=== PATIENT | female | born 1990 | race Caucasian/White ===

== ENCOUNTER 2017-12-29 08:15 | Emergency (ER) | payer OTHER ==
--- OUTSIDE RECORDS SUMMARY | 2017-12-29 08:17 | XMS REPORT | Clinical Summary ---
:1990 Author Organization [facility] Address [address] [place] [address] Phone Care Team Providers Name Role Phone Unavailable Primary Care Provider Unavailable Allergies No Known Allergies Current Medications No known medications Active Problems Not on file Social History Tobacco Use Types Packs/Day Years Used Date Current Every Day Smoker 0.5 Alcohol Use Drinks/Week oz/Week Comments No Sex Assigned at Date Recorded Not on file Last Filed Vital Signs Not on file Plan of Treatment Health Maintenance Due Date Last Done Comments INFLUENZA VACCINE 06/12/2018 Results Not on fileafter 12/28/2016
--- NOTE | 2017-12-29 08:52 | EDPHYS ---
Physician Documentation [facility] Name: Martita Dodge Age: 27 yrs Sex: Female : 1990 Arrival Date: 12/29/2017 Time: 08:18 Bed 13 Private MD: None, None ED Physician Christopher Cochran HPI: 12/29 08:49 This 27 yrs old Female presents to ER via Ambulatory with complaints of Sore sharona Throat. 08:49 The patient presents with sore throat. The patient describes throat pain as burning. 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 - Social history:: Smoking status: Patient uses tobacco products, 4-5 cigarettes/ day. ROS: 08:49 Constitutional: Negative for fever, chills, and weight loss, Eyes: Negative for injury, sharona pain, redness, and discharge, ENT: Negative for injury, pain, and discharge, Neck: Negative for injury, pain, and swelling, Cardiovascular: Negative for chest pain, palpitations, and edema, Abdomen/GI: Negative for abdominal pain, nausea, vomiting, diarrhea, and constipation, Back: Negative for injury and pain, : Negative for injury, bleeding, discharge, and swelling, MS/Extremity: Negative for injury and deformity, Skin: Negative for injury, rash, and discoloration, Neuro: Negative for headache, weakness, numbness, tingling, and seizure, Psych: Negative for depression, anxiety, suicide ideation, homicidal ideation, and hallucinations, Allergy/Immunology: Negative for hives, rash, and allergies, Endocrine: Negative for neck swelling, polydipsia, polyuria, polyphagia, and marked weight changes, Hematologic/Lymphatic: Negative for swollen nodes, abnormal bleeding, and unusual bruising. 08:49 Respiratory: Positive for cough, shortness of breath, wheezing, expiratory. 08:49 MS/extremity: Negative for acute changes. Exam: 08:49 Constitutional: This is a well developed, well nourished patient who is awake, alert, sharona and in no acute distress. Head/Face: Normocephalic, atraumatic. Eyes: Pupils equal round and reactive to light, extra-ocular motions intact. Lids and lashes normal. Conjunctiva and sclera are non-icteric and not injected. Cornea within normal limits. Periorbital areas with no swelling, redness, or edema. ENT: Nares patent. No nasal discharge, no septal abnormalities noted. Tympanic membranes are normal and external auditory canals are clear. Oropharynx with no redness, swelling, or masses, exudates, or evidence of obstruction, uvula midline. Mucous membranes moist. Neck: Trachea midline, no thyromegaly or masses palpated, and no cervical lymphadenopathy. Supple, full range of motion without nuchal rigidity, or vertebral point tenderness. No Meningismus. Chest/axilla: Normal chest wall appearance and motion. Nontender with no deformity. No lesions are appreciated. Cardiovascular: Regular rate and rhythm with a normal S1 and S2. No gallops, murmurs, or rubs. Normal PMI, no JVD. No pulse deficits. Abdomen/GI: Soft, non-tender, with normal bowel sounds. No distension or tympany. No guarding or rebound. No evidence of tenderness throughout. Back: No spinal tenderness. No costovertebral tenderness. Full range of motion. Skin: Warm, dry with normal turgor. Normal color with no rashes, no lesions, and no evidence of cellulitis. MS/ Extremity: Pulses equal, no cyanosis. Neurovascular intact. Full, normal range of motion. Neuro: Awake and alert, GCS 15, oriented to person, place, time, and situation. Cranial nerves II-XII grossly intact. Motor strength 5/5 in all extremities. Sensory grossly intact. Cerebellar exam normal. Normal gait. Psych: Awake, alert, with orientation to person, place and time. Behavior, mood, and affect are within normal limits. 08:49 Respiratory: mild respiratory distress is noted, Respirations: no acute changes, labored breathing, Breath sounds: bronchial sounds, rhonchi, wheezing: expiratory Vital Signs: 08:30 BP 109 / 70; Pulse 99; Resp 16; Temp 98.0(TE); Pulse Ox 97% on R/A; Weight 92.08 kg; ss Height 5 ft. 4 in. (162.56 cm); Pain 4/10; 09:15 BP 110 / 71; Pulse 90; Resp 18 S; Pulse Ox 97% on R/A; jl7 08:30 Body Mass Index 34.84 (92.08 kg, 162.56 cm) MDM: 08:29 Patient medically screened. [facility] 08:51 Data reviewed: vital signs, nurses notes. [facility] 12/29 08:49 Order name: FHT's; Complete Time: 09:07 [facility] Administered Medications: 09:07 Drug: Augmentin 875 mg Route: PO; jl7 09:20 Follow up: Response: No adverse reaction [facility] 09:08 Drug: Xopenex 1.25 mg Route: Inhalation; jl7 09:20 Follow up: Response: No adverse reaction 7 09:08 Drug: AtroVENT Aerosol 0.5 mg Route: Inhalation; jl7 09:20 Follow up: Response: No adverse reaction [facility] 09:08 Drug: predniSONE 20 mg Route: PO; jl7 09:20 Follow up: Response: No adverse reaction [facility] Disposition: 12/29/17 08:51 Discharged to Home. Impression: Bronchitis, not specified as acute or chronic, related conditions, unspecified, third trimester, Tobacco use, Tobacco abuse counseling. - Condition is Stable. - Discharge Instructions: Acute Bronchitis, Upper Respiratory Infection, Adult, Third Trimester of , [id number]. - Prescriptions for Cheratussin AC 10- 100 mg/5 mL Oral liquid - take 1 milliliter by ORAL route every 4 hours; 90 milliliter. Augmentin 875- 125 mg Oral Tablet - take 1 tablet by ORAL route every 12 hours for 10 days; 20 tablet. Prednisone 20 mg Oral Tablet - take 1 tablet by ORAL route once daily for 4 days; 4 tablet. Albuterol Sulfate 90 mcg/actuation - inhale 1-2 puff by INHALATION route every 4-6 hours; 1 Inhaler. - Medication Reconciliation Form, Thank You Letter, Antibiotic Education, Prescription Opioid Use form. - Follow up: Private Physician; When: 2 - 3 days; Reason: Recheck today's complaints, Continuance of care, Re-evaluation by your physician. - Problem is new. - Symptoms have improved. Signatures: Christopher Cochran MD MD cha Smirch, Shelby, RN RN Alexandrea Summers RN RN jl7
--- NOTE | 2017-12-29 08:52 | ER ---
Nurse's Notes [facility] Name: Martita Dodge Age: 27 yrs Sex: Female : 1990 Arrival Date: 12/29/2017 Time: 08:18 Bed 13 Private MD: None, None Diagnosis: Bronchitis, not specified as acute or chronic; related conditions, unspecified, third trimester;Tobacco use;Tobacco abuse counseling Presentation: 12/29 08:26 Presenting complaint: Patient states: sore throat and R ear pain that began yesterday. ss Transition of care: patient was not received from another setting of care. Onset of symptoms was December 28, 2017. Initial Sepsis Screen: Does the patient meet any 2 criteria? No. Patient's initial sepsis screen is negative. Does the patient have a suspected source of infection? No. Patient's initial sepsis screen is negative. Care prior to arrival: None. 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 - Social history:: Smoking status: Patient uses tobacco products, 4-5 cigarettes/ day. Screenin:34 Abuse screen: Denies threats or abuse. Denies injuries from another. Nutritional jl7 screening: No deficits noted. Tuberculosis screening: No symptoms or risk factors identified. Fall Risk None identified. Assessment: 08:34 General: Appears in no apparent distress. uncomfortable, Behavior is calm, cooperative, jl7 appropriate for age. Pain: Complains of pain in headache, posterior neck (when coughing), abdomen (When coughing) Pain does not radiate. Pain currently is 4 out of 10 on a pain scale. Quality of pain is described as pressure, Pain began 1 day ago. Is continuous. Neuro: Level of Consciousness is awake, alert, obeys commands, Oriented to person, place, time, situation, Moves all extremities. Speech is normal, Facial symmetry appears normal. Cardiovascular: Heart tones S1 S2 present Patient's skin is warm and dry. Respiratory: Airway is patent Respiratory effort is even, unlabored, Breath sounds with wheezes in bilateral upper lobes, expiratory wheezes. GI: No signs and/or symptoms were reported involving the gastrointestinal system. Patient currently denies diarrhea, nausea, vomiting. : No signs and/or symptoms were reported regarding the genitourinary system. EENT: Throat is reddened. Derm: Skin is pink, warm \T\ dry. Musculoskeletal: No signs and/or symptoms reported regarding the musculoskeletal system. 09:15 Reassessment: Patient states feeling better. Patient states symptoms have improved. jl7 Vital Signs: 08:30 BP 109 / 70; Pulse 99; Resp 16; Temp 98.0(TE); Pulse Ox 97% on R/A; Weight 92.08 kg; ss Height 5 ft. 4 in. (162.56 cm); Pain 4/10; 09:15 BP 110 / 71; Pulse 90; Resp 18 S; Pulse Ox 97% on R/A; jl7 08:30 Body Mass Index 34.84 (92.08 kg, 162.56 cm) Vitals: 09:08 Heart Tones 134 bpm. jl7 ED Course: 08:18 Patient arrived in ED. mr 08:18 None, None is Private Physician. mr 08:27 Triage completed. ss 08:29 Christopher Cochran MD is Attending Physician. [facility] 08:30 Arm band placed on right wrist. ss 08:34 Alexandrea Munoz RN is Primary Nurse. jl7 08:34 Patient has correct armband on for positive identification. Bed in low position. Call jl7 light in reach. Side rails up X 1. Pulse ox on. NIBP on. 09:44 No provider procedures requiring assistance completed. Patient did not have IV access jl7 during this emergency room visit. Administered Medications: 09:07 Drug: Augmentin 875 mg Route: PO; jl7 09:20 Follow up: Response: No adverse reaction jl7 09:08 Drug: Xopenex 1.25 mg Route: Inhalation; jl7 09:20 Follow up: Response: No adverse reaction jl7 09:08 Drug: AtroVENT Aerosol 0.5 mg Route: Inhalation; jl7 09:20 Follow up: Response: No adverse reaction jl7 09:08 Drug: predniSONE 20 mg Route: PO; jl7 09:20 Follow up: Response: No adverse reaction jl7 Outcome: 08:51 Discharge ordered by . sharona 09:44 Discharged to home ambulatory. jl7 09:44 Condition: stable 09:44 Discharge instructions given to patient, Instructed on discharge instructions, follow up and referral plans. medication usage, Demonstrated understanding of instructions, follow-up care, medications, Prescriptions given X 4. 09:46 Patient left the ED. jl7 Signatures: Christopher Cochran MD MD cha Rivera, Maria mr oPrtia Driscoll RN RN Alexandrea Munoz RN RN jl7
[2017-12-29] MEDS ORDERED: IPRATROPIUM BROM 0.5MG/2.5ML ONE (09:00)
[2017-12-29] MEDS ORDERED: LEVALBUTEROL 1.25 MG/3 ML NEB ONE (09:00)
[2017-12-29] MEDS ORDERED: AMOX/K CLAV 875 MG TAB ONE (09:01)
[2017-12-29] MEDS ORDERED: predniSONE 20 MG TAB ONE (09:01)
== END 2017-12-29 09:46 | disposition home or self-care (01) ==
LOC: ER 08:15
DX: J40 Bronchitis, not specified as acute or chronic (principal); O99.333 Smoking (tobacco) complicating pregnancy, third trimester; F17.210 Nicotine dependence, cigarettes, uncomplicated; Z71.6 Tobacco abuse counseling
CPT/HCPCS: 99284; J7512

== ENCOUNTER 2018-03-16 20:18 | Emergency (ER) | payer OTHER ==
--- OUTSIDE RECORDS SUMMARY | 2018-03-16 20:21 | XMS REPORT | Clinical Summary ---
:1990 Author Organization [facility] Address [address] [place] [address] Phone Care Team Providers Name Role Phone [...] INFLUENZA VACCINE 06/12/2018 Results Not on fileafter 03/15/2017
--- NOTE | 2018-03-16 20:43 | ER ---
Nurse's Notes [facility] Name: Martita Dodge Age: 28 yrs Sex: Female : 1990 Arrival Date: 03/16/2018 Time: 20:19 Bed 18 Private MD: Matthew Wright E Diagnosis: Person with feared health complaint in whom no diagnosis is made Presentation: 03/16 20:29 Presenting complaint: Patient states: "I had my 3rd , its been a week ago and aj1 one day. It looks all fucked up it looks like I went to the [employer] shop, its bleeding and its hurting a lot" Denies fever, N/V/D. Transition of care: patient was not received from another setting of care. Onset of symptoms was March 14, 2018. Risk Assessment: Do you want to hurt yourself or someone else? Patient reports no desire to harm self or others. Initial Sepsis Screen: Does the patient meet any 2 criteria? No. Patient's initial sepsis screen is negative. Does the patient have a suspected source of infection? No. Patient's initial sepsis screen is negative. Care prior to arrival: None. 20:29 Method Of Arrival: Ambulatory aj1 20:29 Acuity: DIANE 4 aj1 Triage Assessment: 20:35 General: Appears in no apparent distress. comfortable, Behavior is calm, cooperative, aj1 appropriate for age. Pain: Complains of pain in suprapubic area Pain currently is 5 out of 10 on a pain scale. Neuro: Level of Consciousness is awake, alert, obeys commands. Cardiovascular: Patient's skin is warm and dry. Respiratory: Airway is patent Respiratory effort is even, unlabored, Respiratory pattern is regular, symmetrical. GI: No signs and/or symptoms were reported involving the gastrointestinal system. : No signs and/or symptoms were reported regarding the genitourinary system. Derm: incision noted to suprapubic area. Musculoskeletal: Circulation, motion, and sensation intact. 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 - Social history:: Smoking status: Patient uses tobacco products, smokes one-half pack cigarettes per day. - Ebola Screening: : Patient denies travel to an Ebola-affected area in the 21 days before illness onset. Screenin:44 Abuse screen: Denies threats or abuse. Denies injuries from another. Nutritional tl1 screening: No deficits noted. Tuberculosis screening: No symptoms or risk factors identified. Fall Risk None identified. Assessment: 20:39 General: Appears in no apparent distress. uncomfortable, Behavior is calm, cooperative, tl1 appropriate for age. Neuro: Level of Consciousness is awake, alert, obeys commands, Oriented to person, place, time, situation. Cardiovascular: Denies chest pain. Respiratory: Airway is patent Trachea midline Respiratory effort is even, unlabored, Breath sounds are clear bilaterally. GI: Abdomen is non-distended, Bowel sounds present X 4 quads. : No signs and/or symptoms were reported regarding the genitourinary system. Derm: Skin is intact, Wound noted suprapubic area recent incison. Vital Signs: 20:35 BP 128 / 89; Pulse 71; Resp 18; Temp 99.4(O); Pulse Ox 96% on R/A; Pain 5/10; aj1 ED Course: 20:19 Patient arrived in ED. ds1 20:19 Matthew Wright MD is Private Physician. ds1 20:34 Triage completed. aj1 20:35 Arm band placed on Patient placed in an exam room. aj1 20:38 Aakash Kearney PA is PHCP. jr8 20:38 Valentino Alba MD is Attending Physician. jr8 20:58 Teresa Carlin RN is Primary Nurse. tl1 20:58 Patient has correct armband on for positive identification. Bed in low position. Side tl1 rails up X 1. 20:58 No provider procedures requiring assistance completed. Patient did not have IV access tl1 during this emergency room visit. Administered Medications: No medications were administered Outcome: 20:43 Discharge ordered by . jr8 20:58 Discharged to home ambulatory. tl1 20:58 Condition: good 20:58 Discharge instructions given to patient, family, Instructed on discharge instructions, follow up and referral plans. wound care, Demonstrated understanding of instructions, follow-up care, wound care. 20:59 Patient left the ED. tl1 Signatures: Chandni Brooke RN RN aj1 Blank Vera ds1 Aakash Kearney PA PA jr8 Teresa Carlin RN RN tl1
--- NOTE | 2018-03-16 20:44 | EDPHYS ---
Physician Documentation [facility] Name: Martita Dodge Age: 28 yrs Sex: Female : 1990 Arrival Date: 03/16/2018 Time: 20:19 Bed 18 Private MD: Matthew Wright E ED Physician Valentino Alba HPI: 03/16 20:43 This 28 yrs old Female presents to ER via Ambulatory with complaints of jr8 Scar Bleeding. 20:43 Onset: The symptoms/episode began/occurred acutely, yesterday. Severity of symptoms: At jr8 their worst the symptoms were mild in the emergency department the symptoms are unchanged. The patient has not experienced similar symptoms in the past. The patient has not recently seen a physician. Had recent . Noticed blood on underwear where scar is. 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 - Social history:: Smoking status: Patient uses tobacco products, smokes one-half pack cigarettes per day. - Ebola Screening: : Patient denies travel to an Ebola-affected area in the 21 days before illness onset. ROS: 20:43 Eyes: Negative for injury, pain, redness, and discharge, ENT: Negative for injury, jr8 pain, and discharge, Neck: Negative for injury, pain, and swelling, Cardiovascular: Negative for chest pain, palpitations, and edema, Respiratory: Negative for shortness of breath, cough, wheezing, and pleuritic chest pain, Abdomen/GI: Negative for abdominal pain, nausea, vomiting, diarrhea, and constipation, Back: Negative for injury and pain, MS/Extremity: Negative for injury and deformity, Neuro: Negative for headache, weakness, numbness, tingling, and seizure. 20:43 Skin: Positive for incision . Exam: 20:43 Cardiovascular: Regular rate and rhythm with a normal S1 and S2. No gallops, murmurs, jr8 or rubs. Normal PMI, no JVD. No pulse deficits. Respiratory: Lungs have equal breath sounds bilaterally, clear to auscultation and percussion. No rales, rhonchi or wheezes noted. No increased work of breathing, no retractions or nasal flaring. Abdomen/GI: Soft, with normal bowel sounds. No distension or tympany. No guarding or rebound. scar noted. No dehiscense present. Internal sutures still intact. No surrounding erythema or cellultis. No bleeding or discharge Skin: Warm, dry with normal turgor. Normal color with no rashes, no lesions, and no evidence of cellulitis. MS/ Extremity: Pulses equal, no cyanosis. Neurovascular intact. Full, normal range of motion. Neuro: Awake and alert, GCS 15, oriented to person, place, time, and situation. Cranial nerves II-XII grossly intact. Motor strength 5/5 in all extremities. Sensory grossly intact. Cerebellar exam normal. Normal gait. Vital Signs: 20:35 BP 128 / 89; Pulse 71; Resp 18; Temp 99.4(O); Pulse Ox 96% on R/A; Pain 5/10; aj1 MDM: 20:38 Patient medically screened. jr8 20:41 Data reviewed: vital signs, nurses notes, and as a result, I will discharge patient. jr8 Data interpreted: Pulse oximetry: on room air is 96 %. Interpretation: normal. Counseling: I had a detailed discussion with the patient and/or guardian regarding: the historical points, exam findings, and any diagnostic results supporting the discharge/admit diagnosis, the need for outpatient follow up, an OB/Gyne specialist, to return to the emergency department if symptoms worsen or persist or if there are any questions or concerns that arise at home. 20:43 ED course: Discussed with patient the the operative incision is looking good. No signs jr8 of infection or discharge. Could not express any blood or serosanguinous fluid. No dehiscence. Needs to f/u with shoe stitcher otherwise nothing of acute nature noted . Administered Medications: No medications were administered Disposition: 22:26 Co-signature as Attending Physician, Valentino Alba MD. mariely Disposition: 03/16/18 20:43 Discharged to Home. Impression: Person with feared health complaint in whom no diagnosis is made. - Condition is Stable. - Discharge Instructions: Delivery, Care After, Delivery, Loss, Care After. - Medication Reconciliation Form, Thank You Letter, Antibiotic Education, Prescription Opioid Use form. - Follow up: Private Physician; When: 1 week; Reason: Wound Recheck, Recheck today's complaints, Continuance of care, Re-evaluation by your physician. - Problem is new. - Symptoms are unchanged. Signatures: Chandni Brooke RN RN aj1 Valentino Alba MD MD pkl Roszak, Josh, PA PA jr8 Teresa Carlin RN RN tl1 Corrections: (The following items were deleted from the chart) 20:59 20:43 03/16/2018 20:43 Discharged to Home. Impression: Person with feared health tl1 complaint in whom no diagnosis is made. Condition is Stable. Forms are Medication Reconciliation Form, Thank You Letter, Antibiotic Education, Prescription Opioid Use. Follow up: Private Physician; When: 1 week; Reason: Wound Recheck, Recheck today's complaints, Continuance of care, Re-evaluation by your physician. Problem is new. Symptoms are unchanged. jr8
== END 2018-03-16 20:59 | disposition home or self-care (01) ==
LOC: ER 20:18
DX: Z71.1 Person with feared health complaint in whom no diagnosis is made (principal); F17.210 Nicotine dependence, cigarettes, uncomplicated; Z98.890 Other specified postprocedural states
CPT/HCPCS: 99281

== ENCOUNTER 2023-02-19 20:00 | Emergency (ER) | payer OTHER ==
--- OUTSIDE RECORDS SUMMARY | 2023-02-19 20:04 | XMS REPORT | Continuity of Care Document ---
:1990 Author Organization [facility] t Address [address] [facility] [address] [place] [address] Care Team Providers Name Role Phone Pcp, Patient Does Not Have A Primary Care Physician [phone] CLARENCE ALDRICH Attending Clinician Unavailable Guillermo Pino Attending Clinician Clarenec Aldrich MD Attending Clinician GUILLERMO FONSECA Attending Clinician Unavailable RON FRAUSTO Attending Clinician Unavailable Ron Eckert Attending Clinician [facility]in_ Attending Clinician Unavailable ABE CRUZ Attending Clinician Unavailable ABE CRUZ Attending Clinician Unavailable CECILE SHEN Attending Clinician Unavailable Cecile Shen DO Attending Clinician Doctor Unassigned, [place] Attending Clinician Unavailable DAYA HOBBS Attending Clinician Unavailable Daya Hobbs MD Attending Clinician Jennifer Weinstein Attending Clinician GC_GCAC_Xin_ Admitting Clinician Unavailable DAYA HOBBS Admitting Clinician Unavailable Payers Payer Name Policy Type Policy Number Effective Date Expiration Date S ource [facility] [id number] 2022 [place]ICE [place] ST[place] 00:00:00 [place] OF [place] [id number] 2022 00:00:00 Problems Condition Condition Condition Status Onset Resolution Last Treating Co mments Source Name Details Category Date Date Treatment Clinician Date Tobacco Tobacco Disease Active Univers use use 8-27 ity of disorder disorder 00:00: [address] Branch Obesity Obesity Disease Active 2017- Univers (BMI (BMI 6-26 ity of 30-39.9) 30-39.9) 00:00: [address] 39 weeks 39 weeks Disease Active 2017-0 Unive rs gestation gestation 6-26 ity of of of 00:00: [place] 00 [facility] Liveborn Liveborn Disease Active 2017-0 Unive rs by by 6-26 ity of 00:00: [facility] Status Status Disease Active 2018-0 Univers post tubal post tubal 6- it y of ligation ligation 00:00: [address] Status Status Disease Active 2018-0 Univers post tubal post tubal 6-26 it y of ligation ligation 00:00: [address] Supervisio Supervisio Disease Active 2018- U nivers n of high n of high 4-24 ity of risk risk 00:00: [place] [facility] in third in third Branch trimester trimester Obesity in Obesity in Disease Active 2018-0 U nivers 2-21 ity of 00:00: [address] Vaginal Vaginal Disease Active 2018- Univers bleeding bleeding 1-02 ity of in in 00:00: [place] , , 00 Me dical second second Branch trimester trimester 14 weeks 14 weeks Disease Active 2018-0 Unive rs gestation gestation 1-02 ity of of of 00:00: [place] 00 [facility] URI with URI with Disease Active 2017- Unive rs cough and cough and 1-02 ity of congestion [place] [facility] Acute Acute Disease Active 2018-0 Univers otitis otitis 1-02 ity of media media 00:00: [place] 00 [facility] Previous Previous Disease Active 2016- Unive rs 1-14 ity of delivery delivery 00:00: [place] affecting affecting 00 [facility] , , Br anch antepartum antepartum Multiparit Multiparit Disease Active 2016-09 U nivers y y 09-25 ity of 00:00: [place] 00 Medical Branch Missed Missed Disease Active 2016-09 Univers menses menses 09-25 ity of 00:00: [place] 00 [facility] Maternal Maternal Disease Active 2016-09 Unive rs tobacco tobacco 09-25 ity of use in use in 00:00: [place] first first 00 Medical trimester trimester Bran ch Allergies, Adverse Reactions, Alerts Allergy Allergy Status Severity Reaction(s) Onset Inactive Treating Comm ents Source Name Type Date Date Clinician Propofol Propensi Active Anaphylaxis 2016-09 Pt state s Univers ty to 09-25 that she ity of adverse 00:00: is unsure [place] reaction 00 what the Medica l s name of Branch medicatio n is, but occurred with first delivery which was an emergency PROPOFOL DRUG Active Anaphylaxis 2016-09 Uni vers INGREDI 09-25 ity of 00:00: [place] 00 [facility] Social History Social Habit Start Date Stop Date Quantity Comments Source History of tobacco 2005-07-26 Cigarette Smoker University of use 00:00:00 [facility] Gender identity [facility] Sexual orientation [facility] Exposure to 2022-12-20 2022-12-30 Not sure [facility] SARS-CoV-2 (event) 00:00:00 16:10:00 [facility] History of Social 2018-07-31 2018-07-[address] function 00:00:00 00:00:00 Hospital Cigarette 2017-07-26 2017-07-26 University of pack-years 00:00:00 00:00:00 [facility] Tobacco use and 2017-07-26 2017-07-26 Smokeless Universit y of exposure 00:00:00 00:00:[address] tobacco non-[address] [facility] Alcohol intake 2014-01-18 2014-01-18 Current BETY Hughes es 00:00:00 00:00:00 non-drinker of Medical Ce nter alcohol (finding) Cigarettes smoked 2013-11-01 2013-11-01 BETY Salguero current (pack per 00:00:00 00:00:00 [facility] Center day) - Reported Sex [birth year] At [birth year] BETY Chaudharys 00:00:00 [facility]:00:00 [facility] Smoking Status Start Date Stop Date Source Tobacco smoking consumption [facility] unknown Smokes tobacco daily 2017-07-26 00:00:00 Univers ity of [place] [facility] Medications Ordered Filled Start Stop Current Ordering Indication Dosage Frequency Signature Comments Components Source Medication Medication Date Date Medication? Clinician (SIG) Name Name doxycycline Yes [id number] 100mg Take 1 Univers hyclate 100 6-10 capsule by it y of mg capsule 00:00: mouth in [place] 00 the Medical morning Branch and 1 capsule in the evening. lidocaine 2022- No 10mL 10 mL, Unive rs 2% viscous 12-3020 Oral, ity of (LIDOCAINE 21:21: 21:29 ONCE, 1 [place] as VISCOUS) 2 00 :00 dose, On Medic al % solution [facility] Branch 10 mL 12/30/22 at 1630, RITA ibuprofen 2022- No 800mg 800 mg, Uni vers (IBU) 12-30- Oral, ity of tablet 800 21:20: 21:29 ONCE, 1 [place] mg 00 :00 dose, On Medical [facility] Branch 12/30/22 at 1630, RITA amoxicillin 2022- No 1{tbl} 1 tablet, Univers -clavulanat 12-30 Oral, ity of e 21:20: 21:30 ONCE, 1 [place] (AUGMENTIN) 00 :00 dose, On Medi parker 875-125 mg [facility] per tablet 12/30/22 at 1 tablet 1630, RITA
Re ason for Anti-Infec tive: Documented Infection< br>Documen jorge Infection Site: HEENT
D uration of Therapy: Other (see Comments) ibuprofen Yes [id number] 600mg Take 1 U nivers 600 mg 4-20 tablet by ity of tablet 00:00: mouth [place] 00 every 8 Medical (eight) Branch hours as needed for Pain (scale 4-6). chlorhexidi Yes [id number] 15mL Swish and Univers ne 0.12 % 4-20 spit out ity of mouthwash 00:00: 15 [place] the [place] morning Branch and 15 mL in the evening. ibuprofen Yes [id number] 600mg Take 1 U nivers 600 mg 4-20 tablet by ity of tablet 00:00: mouth [place] 00 every 8 Medical (eight) Branch hours as needed for Pain (scale 4-6). chlorhexidi Yes [id number] 15mL Swish and Univers ne 0.12 % 4-20 spit out ity of mouthwash 00:00: 15 [place] the Medical morning Branch and 15 mL in the evening. ibuprofen Yes [id number] 600mg Take 1 U nivers 600 mg 4-20 tablet by ity of tablet 00:00: mouth [place] 00 every 8 Medical (eight) Branch hours as needed for Pain (scale 4-6). chlorhexidi Yes [id number] 15mL Swish and Univers ne 0.12 % 4-20 spit out ity of mouthwash 00:00: 15 [place] the Medical morning Branch and 15 mL in the evening. amoxicillin 2022- Yes [id number] 1{tbl} Take 1 Univers -clavulanat 4-20 01-10 tablet by it y of e 875-125 00:00: 04:59 mouth in [place] mg per 00 :00 the Medical tablet morning Branch and 1 tablet in the evening. Do all this for 10 days. ibuprofen 2021- No 600mg 600 mg, Uni vers (IBU) 05-25 Oral, ity of tablet 600 10:15: 10:05 ONCE, 1 [place] mg 00 :00 dose, [facility] 05/25/22 at 0515, RITA cefdinir 2021- No 300mg 300 mg, Univ ers (OMNICEF) 05-25 Oral, ity of capsule 300 10:15: 10:06 ONCE, 1 [place] mg 00 :00 dose, On Medical e Branch 05/25/22 at 0515, RITA
Re ason for Anti-Infec tive: Documented Infection< br>Documen jorge Infection Site: Urine
D uration of Therapy: 7 days phenazopyri Yes [id number] 200mg Take 1 Univers dine 200 mg 05-25 tablet by ity of tablet 00:00: mouth in [place] 00 the Medical morning Branch and 1 tablet at noon and 1 tablet in the evening. phenazopyri Yes [id number] 200mg Take 1 Univers dine 200 mg 9-13 tablet by ity of tablet 00:00: mouth in [place] 00 [facility] morning Branch and 1 tablet at noon and 1 tablet in the evening. phenazopyri Yes [id number] 200mg Take 1 Univers dine 200 mg 9-13 tablet by ity of tablet 00:00: mouth in [place] 00 [facility] morning Branch and 1 tablet at noon and 1 tablet in the evening. phenazopyri Yes [id number] 200mg Take 1 Univers dine 200 mg 9-13 tablet by ity of tablet 00:00: mouth in [place] 00 the [facility] morning Branch and 1 tablet at noon and 1 tablet in the evening. cefdinir 2021- No [id number] 300mg Take 1 Univers 300 mg 9-13 -21 capsule by ity of capsule 00:00: 04:59 mouth [place] 00 :00 every 12 [facility] hours for 7 days. HYDROcodone 2021- No 1{tbl} 1 tablet, Univers -acetaminop 03-20 Oral, ity of hen (NORCO 15:45: 15:38 ONCE, 1 [place] 5) 5-325 mg 00 :00 dose, On Medi parker tablet 1 03/20/22 Bran h tablet at 1045, RITA dexamethaso 2021- No 10mg 10 mg, Uni vers ne sod phos -24 12-14 Intramuscu i ty of PF 19:00: 18:07 lar, ONCE, [place] injection 00 :00 1 dose, On Medi parker 10 mg [facility] 12/24/21 at 1400, 1 mL predniSONE Yes Please Univers 10 mg 4-14 take 5 ity of tablet 00:00: tablets by [place] 00 mouth Medical daily for Branch 3 days, then 4 tablets by mouth daily for 3 days, then 3 tablets by mouth daily for 3 days, then 2 tablets by mouth daily for 3 days, then 1 tablet by mouth daily for 2 days, then 0.5 tablets by mouth daily for 2 days then stop predniSONE Yes Please Univers 10 mg 4-14 take 5 ity of tablet 00:00: tablets by [place] 00 mouth Medical daily for Branch 3 days, then 4 tablets by mouth daily for 3 days, then 3 tablets by mouth daily for 3 days, then 2 tablets by mouth daily for 3 days, then 1 tablet by mouth daily for 2 days, then 0.5 tablets by mouth daily for 2 days then stop predniSONE Yes Please Univers 10 mg 4-14 take 5 ity of tablet 00:00: tablets by [place] 00 mouth Medical daily for Branch 3 days, then 4 tablets by mouth daily for 3 days, then 3 tablets by mouth daily for 3 days, then 2 tablets by mouth daily for 3 days, then 1 tablet by mouth daily for 2 days, then 0.5 tablets by mouth daily for 2 days then stop predniSONE Yes Please Univers 10 mg 4-14 take 5 ity of tablet 00:00: tablets by [place] 00 mouth Medical daily for Branch 3 days, then 4 tablets by mouth daily for 3 days, then 3 tablets by mouth daily for 3 days, then 2 tablets by mouth daily for 3 days, then 1 tablet by mouth daily for 2 days, then 0.5 tablets by mouth daily for 2 days then stop predniSONE Yes Please Univers 10 mg 4-14 take 5 ity of tablet 00:00: tablets by [place] 00 mouth Medical daily for Branch 3 days, then 4 tablets by mouth daily for 3 days, then 3 tablets by mouth daily for 3 days, then 2 tablets by mouth daily for 3 days, then 1 tablet by mouth daily for 2 days, then 0.5 tablets by mouth daily for 2 days then stop predniSONE Yes Please Univers 10 mg 4-14 take 5 ity of tablet 00:00: tablets by [place] 00 mouth Medical daily for Branch 3 days, then 4 tablets by mouth daily for 3 days, then 3 tablets by mouth daily for 3 days, then 2 tablets by mouth daily for 3 days, then 1 tablet by mouth daily for 2 days, then 0.5 tablets by mouth daily for 2 days then stop ibuprofen 2020-09 Yes [id number] 800mg Take 1 Univers 800 mg 2-11 tablet by ity of tablet 00:00: mouth [place] 00 every 8 Medical (eight) Branch hours as needed for Pain (scale 4-6). methocarbam 2020-09 Yes [id number] 500mg Take 1 Univers oL 2-11 tablet by ity of (ROBAXIN) 00:00: mouth [place] 500 mg 00 every 6 Medical tablet (six) Branch hours as needed for Pain (scale 4-6) (MUSCLE SPASM). ibuprofen 2020-09 Yes [id number] 800mg Take 1 Univers 800 mg 2-11 tablet by ity of tablet 00:00: mouth [place] 00 every 8 Medical (eight) Branch hours as needed for Pain (scale 4-6). methocarbam 2020-09 Yes [id number] 500mg Take 1 Univers oL 2-11 tablet by ity of (ROBAXIN) 00:00: mouth [place] 500 mg 00 every 6 Medical tablet (six) Branch hours as needed for Pain (scale 4-6) (MUSCLE SPASM). ibuprofen 2020-09 Yes [id number] 800mg Take 1 Univers 800 mg 2-11 tablet by ity of tablet 00:00: mouth [place] 00 every 8 Medical (eight) Branch hours as needed for Pain (scale 4-6). methocarbam 2020-09 Yes [id number] 500mg Take 1 Univers oL 2-11 tablet by ity of (ROBAXIN) 00:00: mouth [place] 500 mg 00 every 6 Medical tablet (six) Branch hours as needed for Pain (scale 4-6) (MUSCLE SPASM). ibuprofen 2020-09 Yes [id number] 800mg Take 1 Univers 800 mg 2-11 tablet by ity of tablet 00:00: mouth [place] 00 every 8 Medical (eight) Branch hours as needed for Pain (scale 4-6). methocarbam 2020-09 Yes [id number] 500mg Take 1 Univers oL 2-11 tablet by ity of (ROBAXIN) 00:00: mouth [place] 500 mg 00 every 6 Medical tablet (six) Branch hours as needed for Pain (scale 4-6) (MUSCLE SPASM). ibuprofen 2020-09 Yes [id number] 800mg Take 1 Univers 800 mg 2-11 tablet by ity of tablet 00:00: mouth [place] 00 every 8 Medical (eight) Branch hours as needed for Pain (scale 4-6). methocarbam 2020-09 Yes [id number] 500mg Take 1 Univers oL 2-11 tablet by ity of (ROBAXIN) 00:00: mouth [place] 500 mg 00 every 6 Medical tablet (six) Branch hours as needed for Pain (scale 4-6) (MUSCLE SPASM). ibuprofen 2020-09 Yes [id number] 800mg Take 1 Univers 800 mg 2-11 tablet by ity of tablet 00:00: mouth [place] 00 every 8 Medical (eight) Branch hours as needed for Pain (scale 4-6). methocarbam 2020-09 Yes [id number] 500mg Take 1 Univers oL 2-11 tablet by ity of (ROBAXIN) 00:00: mouth [place] 500 mg 00 every 6 Medical tablet (six) Branch hours as needed for Pain (scale 4-6) (MUSCLE SPASM). ibuprofen 2020-09 Yes [id number] 800mg Take 1 Univers 800 mg 2-11 tablet by ity of tablet 00:00: mouth [place] 00 every 8 Medical (eight) Branch hours as needed for Pain (scale 4-6). methocarbam 2020-09 Yes [id number] 500mg Take 1 Univers oL 2-11 tablet by ity of (ROBAXIN) 00:00: mouth [place] 500 mg 00 every 6 Medical tablet (six) Branch hours as needed for Pain (scale 4-6) (MUSCLE SPASM). ibuprofen 2020-09 Yes [id number] 800mg Take 1 Univers 800 mg 2-11 tablet by ity of tablet 00:00: mouth [place] 00 every 8 Medical (eight) Branch hours as needed for Pain (scale 4-6). methocarbam 2020-09 Yes [id number] 500mg Take 1 Univers oL 2-11 tablet by ity of (ROBAXIN) 00:00: mouth [place] 500 mg 00 every 6 Medical tablet (six) Branch hours as needed for Pain (scale 4-6) (MUSCLE SPASM). cephALEXin 2020-09- No [id number] 500mg Take 1 Univers (KEFLEX) 07-16 [id number] capsule by it y of 500 mg 00:00: 04:59 mouth 2 [place] capsule 00 :00 (two) Medical times Branch daily for 5 days. No known No Univers medications 05-08 ity of 14:45: [place] 01 Medical Branch metroNIDAZO 2019- No [id number] 500mg Take 1 Univers LE (FLAGYL) 05-08 tablet by it y of 500 mg 00:00: 04:59 mouth 2 [place] tablet 00 :00 (two) Medical times Branch daily for 7 days. metroNIDAZO 2018- No [id number] 500mg Take 1 Univers LE (FLAGYL) 8-08 06- tablet by it y of 500 mg 00:00: 04:59 mouth 2 [place] tablet 00 :00 (two) Medical times Branch daily for 7 days. metroNIDAZO 2019- No [id number] 500mg Take 1 Univers LE (FLAGYL) 8- tablet by it y of 500 mg 00:00: 04:59 mouth 2 [place] tablet 00 :00 (two) Medical times Branch daily for 7 days. nicotine 2018- Yes 1{patch 1 Patch, Un alison (NICODERM) 8 } Topical, ity o f 21 mg/24 hr 06:15: Administer [place] patch 1 00 over 24 Medical Patch Hours, Branch Q24H, First dose on 04/28/19 at 0115, Until Discontinu ed, Routine ibuprofen Yes 600mg Take 1 Unive rs 600 mg 6-27 tablet by ity of tablet 00:00: mouth [place] 00 every 6 Medical (six) Branch hours as needed for Pain (scale 1-3) or Pain (scale 4-6) (Pain). Take with food or milk. HYDROcodone Yes 1{tbl} Take 1 Un alison -acetaminop 6-27 tablet by ity of hen (NORCO) 00:00: mouth [place] 10-325 mg 00 every 4 Medical tablet (four) Branch hours as needed for Pain (scale 1-3), Pain (scale 4-6) or Pain (scale 7-10). ibuprofen Yes 800mg Take 1 Unive rs 800 mg 6-27 tablet by ity of tablet 00:00: mouth [place] 00 every 8 Medical (eight) Branch hours as needed for Pain (scale 1-3). ibuprofen 2019- No 600mg Take 1 Univ ers 600 mg 6-27 08-27 tablet by ity of tablet 00:00: 00:00 mouth [place] 00 :00 every 6 Medical (six) Branch hours as needed for Pain (scale 1-3) or Pain (scale 4-6) (Pain). Take with food or milk. HYDROcodone 2017- 2019- No 1{tbl} Take 1 U nivers -acetaminop 6-27 08-27 tablet by it y of hen (NORCO) 00:00: 00:00 [place] 10-325 mg 00 :00 every 4 Medical tablet (four) Branch hours as needed for Pain (scale 1-3), Pain (scale 4-6) or Pain (scale 7-10). ibuprofen 2018- No 800mg Take 1 Univ ers 800 mg 03-08 tablet by ity of tablet 00:00: 00:00 mouth [place] 00 :00 every 8 Medical (eight) Branch hours as needed for Pain (scale 1-3). ibuprofen 2018- No 600mg Take 1 Univ ers 600 mg 03-08 tablet by ity of tablet 00:00: 00:00 mouth [place] 00 :00 every 6 Medical (six) Branch hours as needed for Pain (scale 1-3) or Pain (scale 4-6) (Pain). Take with food or milk. HYDROcodone 2018- No 1{tbl} Take 1 U nivers -acetaminop 03-08 tablet by it y of hen (NORCO) 00:00: 00:00 mouth [place] 10-325 mg 00 :00 every 4 Medical tablet (four) Branch hours as needed for Pain (scale 1-3), Pain (scale 4-6) or Pain (scale 7-10). ibuprofen 2018- No 800mg Take 1 Univ ers 800 mg 03-08 tablet by ity of tablet 00:00: 00:00 mouth [place] 00 :00 every 8 Medical (eight) Branch hours as needed for Pain (scale 1-3). ranitidine Yes 150mg Take 1 Univ ers (ZANTAC) - tablet by ity of 150 mg 00:00: mouth 2 [place] tablet 00 (two) Medical times Branch daily. Follow up with your MD for further evaluation and treatment. sod Yes 1{bottl Use 1 Univers chlor-bicar 4-21 e} Bottle in ity of b-squeez 00:00: each [place] bottle 00 nostril 2 Medical (NEILMED (two) Branch SINUS RINSE times COMPLETE) daily. Use pkdv in hot shower 1 hour before bedtime ranitidine 2019- No 150mg Take 1 Uni vers (ZANTAC) -02 05- tablet by ity o f 150 mg 00:00: 00:00 mouth 2 [place] tablet 00 :00 (two) Medical times Branch daily. Follow up with your MD for further evaluation and treatment. sod 2019- No 1{bottl Use 1 Univers chlor-bicar 12-31 e} Bottle in it y of b-squeez 00:00: 00:00 each [place] bottle 00 :00 nostril 2 Medical (NEILMED (two) Branch SINUS RINSE times COMPLETE) daily. Use pkdv in hot shower 1 hour before bedtime ranitidine 2019- No 150mg Take 1 Uni vers (ZANTAC) 12-31 tablet by ity o f 150 mg 00:00: 00:00 mouth 2 [place] tablet 00 :00 (two) Medical times Branch daily. Follow up with your MD for further evaluation and treatment. sod 2019- No 1{bottl Use 1 Univers chlor-bicar 12-31 e} Bottle in it y of b-squeez 00:00: 00:00 each [place] bottle 00 :00 nostril 2 Medical (NEILMED (two) Branch SINUS RINSE times COMPLETE) daily. Use pkdv in hot shower 1 hour before bedtime Yes [id number] 1{packe Take 1 Univers vit 1-09 t} Packet by ity of 33-iron-fol 00:00: mouth [place] ic-dha 00 daily. Medical (SELECT-OB Branch + DHA) 29 mg iron-1 mg -250 mg combo pack 2019- No [id number] 1{packe Take 1 Univers vit 1-05 20-27 t} Packet by ity of 33-iron-fol 00:00: 00:00 [place] ic-dha 00 :00 daily. Medical (SELECT-OB Branch + DHA) 29 mg iron-1 mg -250 mg combo pack 2019- No [id number] 1{packe Take 1 Univers vit 1- 08-27 t} Packet by ity of 33-iron-fol 00:00: 00:00 [place] ic-dha 00 :00 daily. Medical (SELECT-OB Branch + DHA) 29 mg iron-1 mg -250 mg combo pack Immunizations Ordered Filled Immunization Date Status Comments [facility] e Immunization Name Name TDAP 2017-12-22 Completed [facility] 00:00:00 [facility] TDAP 2017-12-22 Completed University of 00:00:00 [place] [facility] TDAP 2017-12-22 Completed University of 00:00:00 [place] [facility] TDAP 2017-12-22 Completed University of 00:00:00 [place] [facility] TDAP 2017-12-22 Completed University of 00:00:00 [place] [facility] TDAP 2017-12-22 Completed University of 00:00:00 [place] [facility] TDAP 2017-12-22 Completed University of 00:00:00 [place] [facility] TDAP 2017-12-22 Completed University of 00:00:00 [place] [facility] TDAP 2017-12-22 Completed University of 00:00:00 [place] [facility] Tdap 2017-12-22 Completed University of 00:00:00 [place] [facility] Tdap 2017-12-22 Completed University of 00:00:00 [place] [facility] Tdap 2017-12-22 Completed University of 00:00:00 [place] [facility] Tdap 2017-12-22 Completed University of 00:00:00 [place] [facility] TDAP 2017-12-22 Completed University of 00:00:00 [facility] Vital Signs Vital Name Observation Time Observation Value Comments Source Systolic blood 2023-02-19 05:41:00 128 mm[Hg] Univer sity of pressure [facility] Diastolic blood 2023-02-19 05:41:00 98 mm[Hg] Unive rsity of pressure [facility] Heart rate 2023-02-19 05:41:00 83 /min [facility] Body temperature 2023-02-19 05:41:00 37 Sangeetha [facility] Respiratory rate 2023-02-19 05:41:00 21 /min [facility] Body height 2023-02-19 05:41:00 162.6 cm [facility] Body weight 2023-02-19 05:41:00 73.029 kg [facility] BMI 2023-02-19 05:41:00 27.64 kg/m2 [facility] Oxygen saturation in 2023-02-19 05:41:00 100 /min [facility] Arterial blood by [facility] Pulse oximetry Branch Systolic blood 2023-02-18 05:56:00 100 mm[Hg] Univer sity of pressure [facility] Diastolic blood 2023-02-18 05:56:00 71 mm[Hg] Unive rsity of pressure [place] [facility] Heart rate 2023-02-18 05:56:00 87 /min Universi ty of [place] [facility] Body temperature 2023-02-18 05:56:00 36.72 Sangeetha Univ ersity of [place] [facility] Respiratory rate 2023-02-18 05:56:00 18 /min Univ ersity of [place] [facility] Body height 2023-02-18 05:56:00 162.6 cm Universi ty of [place] [facility] Body weight 2023-02-18 05:56:00 73.211 kg Universi ty of [place] [facility] BMI 2023-02-18 05:56:00 27.70 kg/m2 Universi ty of [place] [facility] Oxygen saturation in 2023-02-18 05:56:00 97 /min University of Arterial blood by [place] Intentio parker Pulse oximetry Branch Systolic blood 2022-12-30 21:11:00 125 mm[Hg] Univer sity of pressure [place] [facility] Diastolic blood 2022-12-30 21:11:00 85 mm[Hg] Unive rsity of pressure [place] [facility] Heart rate 2022-12-30 21:11:00 95 /min Universi ty of [place] [facility] Body temperature 2022-12-30 21:11:00 37.22 Sangeetha Univ ersity of [place] [facility] Respiratory rate 2022-12-30 21:11:00 18 /min Univ ersity of [place] [facility] Body weight 2022-12-30 21:11:00 68.04 kg Universi ty of [place] [facility] BMI 2022-12-30 21:11:00 25.75 kg/m2 Universi ty of [place] [facility] Oxygen saturation in 2022-12-30 21:11:00 100 /min University of Arterial blood by [place] Intentio parker Pulse oximetry Branch Systolic blood 2022-05-25 08:50:00 117 mm[Hg] Univer sity of pressure [place] [facility] Diastolic blood 2022-05-25 08:50:00 75 mm[Hg] Unive rsity of pressure [place] [facility] Heart rate 2022-05-25 08:50:00 86 /min Universi ty of [place] [facility] Body temperature 2022-05-25 08:50:00 36.89 Sangeetha Univ ersity of [place] [facility] Respiratory rate 2022-05-25 08:50:00 18 /min Univ ersity of [place] [facility] Body height 2022-05-25 08:50:00 162.6 cm Universi ty of [place] [facility] Body weight 2022-05-25 08:50:00 68.04 kg Universi ty of [place] [facility] BMI 2022-05-25 08:50:00 25.75 kg/m2 Universi ty of [place] [facility] Oxygen saturation in 2022-05-25 08:50:00 98 /min [facility] of Arterial blood by [facility] Pulse oximetry Branch Systolic blood 2022-03-20 15:33:00 109 mm[Hg] [facility] Diastolic blood 2022-03-20 15:33:00 82 mm[Hg] Un[facility] Heart rate 2022-03-20 15:33:00 100 /min [facility] Body temperature 2022-03-20 15:33:00 37.06 Sangeetha [facility] [place] [facility] Respiratory rate 2022-03-20 15:33:00 20 /min [facility] [place] [facility] Body height 2022-03-20 15:33:00 162.6 cm [facility] [place] [facility] Body weight 2022-03-20 15:33:00 68.04 kg [facility] [place] [facility] BMI 2022-03-20 15:33:00 25.75 kg/m2 [facility] [place] [facility] Oxygen saturation in 2022-03-20 15:33:00 100 /min [facility] of Arterial blood by [facility] Pulse oximetry Branch Systolic blood 2021-12-24 17:40:00 109 mm[Hg] [facility] Diastolic blood 2021-12-24 17:40:00 86 mm[Hg] [facility] Heart rate 2021-12-24 17:40:00 99 /min [facility] Body temperature 2021-12-24 17:40:00 36.33 Sangeetha [facility] [place] [facility] Respiratory rate 2021-12-24 17:40:00 15 /min [facility] Body height 2021-12-24 17:40:00 162.6 cm [facility] Body weight 2021-12-24 17:40:00 72.576 kg [facility] BMI 2021-12-24 17:40:00 27.46 kg/m2 [facility] Oxygen saturation in 2021-12-24 17:40:00 99 /min [facility] [place] by [place] [facility]er Pulse oximetry Branch Systolic blood 2021-08-22 08:36:03 109 mm[Hg] [facility] Diastolic blood 2021-08-22 08:36:03 79 mm[Hg] [facility] Heart rate 2021-08-22 08:36:03 70 /min [facility] Respiratory rate 2021-08-22 08:36:03 20 /min [facility] Body temperature 2021-08-22 05:16:00 36.83 Sangeetha [facility] Body weight 2021-08-22 05:16:00 77.111 kg [facility] BMI 2021-08-22 05:16:00 29.18 kg/m2 [facility] Oxygen saturation in 2021-08-22 05:16:00 100 /min [facility] Arterial blood by [facility] Pulse oximetry Branch Systolic blood 2021-07-10 06:24:00 131 mm[Hg] [facility] Diastolic blood 2021-07-10 06:24:00 83 mm[Hg] [facility] Heart rate 2021-07-10 06:24:00 88 /min [facility] Body temperature 2021-07-10 06:24:00 36.5 Sangeetha [facility] Respiratory rate 2021-07-10 06:24:00 18 /min [facility] Body height 2021-07-10 06:24:00 162.6 cm [facility] Body weight 2021-07-10 06:24:00 77.701 kg [facility] BMI 2021-07-10 06:24:00 29.40 kg/m2 [facility] Oxygen saturation in 2021-07-10 06:24:00 100 /min [facility] [place] [facility] Pulse oximetry Branch Systolic blood 2019-05-08 19:21:00 118 mm[Hg] [facility] Diastolic blood 2019-05-08 19:21:00 68 mm[Hg] [facility] Heart rate 2019-05-08 19:21:00 59 /min [facility] Body temperature 2019-05-08 19:21:00 37.06 Sangeetha [facility] Respiratory rate 2019-05-08 19:21:00 16 /min [facility] [place] [facility] Body height 2019-05-08 19:21:00 162.6 cm [facility] Body weight 2019-05-08 19:21:00 80.854 kg [facility] BMI 2019-05-08 19:21:00 30.60 kg/m2 [facility] [place] [facility] Systolic blood 2019-04-28 04:40:00 109 mm[Hg] [facility] Diastolic blood 2019-04-28 04:40:00 91 mm[Hg] [facility] Heart rate 2019-04-28 04:40:00 95 /min [facility] [place] [facility] Body temperature 2019-04-28 04:40:00 36.83 Sangeetha [facility] Respiratory rate 2019-04-28 04:40:00 18 /min [facility] Body weight 2019-04-28 04:40:00 80.287 kg [facility] [place] [facility] BMI 2019-04-28 04:40:00 30.38 kg/m2 [facility] Oxygen saturation in 2019-04-28 04:40:00 99 /min [facility] Arterial blood by [facility] Pulse oximetry Branch Procedures Procedure Date / Time Performed Performing Clinician Sour e CONSENT/REFUSAL FOR 2023-02-19 05:41:00 Doctor Unassigned, No [facility] [place] DIAGNOSIS AND Name Medical Branch TREATMENT CONSENT/REFUSAL FOR 2023-02-18 05:31:54 Doctor Unassigned, No [facility] [place] DIAGNOSIS AND Name Medical Branch TREATMENT CONSENT/REFUSAL FOR 2022-12-30 20:58:01 Doctor Unassigned, No [facility] [place] DIAGNOSIS AND Name Medical Branch TREATMENT POCT TEST 2022-05-25 08:58:00 Abe Cruz [facility] [place] [facility] URINALYSIS 2022-05-25 08:53:00 Anthony Abe [place] [facility] [place] [facility] NOTICE OF PRIVACY 2022-05-25 08:40:31 Doctor Unassigned, No [facility] [place] PRACTICES Name Medical Branch CONSENT/REFUSAL FOR 2022-05-25 08:38:37 Doctor Unassigned, No [facility] [place] DIAGNOSIS AND Name Medical Branch TREATMENT COVID-19 (ID NOW RAPID 2022-03-20 15:39:00 Cecile Shen [facility] [place] TESTING) Medical Branch CONSENT/REFUSAL FOR 2022-03-20 15:21:54 Doctor Unassigned, No [facility] [place] DIAGNOSIS AND Name Medical Branch TREATMENT CONSENT/REFUSAL FOR 2021-12-24 17:32:40 Doctor Unassigned, No [facility] [place] DIAGNOSIS AND Name Medical Branch TREATMENT EMERGENCY DEPARTMENT 2021-08-30 06:01:00 Doctor Unassigned, No [facility] [place] DOCUMENTS Name Medical Branch XR CERVICAL SPINE 3 VW 2021-08-22 06:49:00 Daya Hobbs [facility] ersity [facility] Medical Branch NOTICE OF PRIVACY 2021-08-22 05:07:24 Doctor Unassigned, No [facility] [place] PRACTICES Name Medical Branch CONSENT/REFUSAL FOR 2021-08-22 05:06:30 Doctor Unassigned, No [facility] [place] DIAGNOSIS AND Name Medical Branch TREATMENT CONSENT/REFUSAL FOR 2021-07-10 06:15:51 Doctor Unassigned, No [facility] [place] DIAGNOSIS AND Name Medical Branch TREATMENT NOTICE OF PRIVACY 2021-07-10 06:15:37 Doctor Unassigned, No [facility] [place] PRACTICES Name Medical Branch ED LACERATION REPAIR 2019-04-28 06:33:44 Daya Hobbs [facility] Medical Branch XR HAND 3+ VW RIGHT 2019-04-28 05:38:50 Daya Hobbs [facility] Medical [facility] Plan of Care Planned Activity Planned Date Details Comments Source Future Scheduled 2022-12-30 COVID-19 VACCINE [facility] Test 15:58:47 (#1) [code = COVID-19 VACCINE (#1)] Future Scheduled 2022-12-30 Screening for [facility] Test 15:58:47 malignant neoplasm of cervix (procedure) [code = 987045036] Future Scheduled 2022-12-30 INFLUENZA [facility]ACCINE [facility] 15:58:47 [code = INFLUENZA VACCINE] Encounters Start End Encounter Admission Attending Care Care Encounter Source Date/Time Date/Time Type Type Clinicians Facility Department ID 2023-02-19 2023-02-19 Emergency [facility] [id number] Univers 00:49:00 01:37:[address] [facility] 2023-02-19 2023-02-19 Emergency Guillermo Fonseca [facility] 1.2. [id number] Univers 00:49:00 01:37:00 Clarence Aldrich [place] [id number] ity of [place] [id number] [facility] [id number] [address] 2023-02-18 2023-02-18 Emergency [facility] [id number] Univers 00:59:00 03:37:00 GUILLERMO [facility] 2023-02-18 2023-02-18 Emergency [facility] [id number] Univers 00:59:00 03:37:00 Guillermo LIRIANOTON [id number] ity of [place] [id number] [facility] [id number] [address] 2022-12-30 2022-12-30 Emergency Wil [facility] [id number] Univers 16:12:00 17:00:00 [facility] 2022-12-30 2022-12-30 [facility] [id number] Univers 16:12:00 17:00:00 Shinamber LIN [id number] i ty of [place] [id number] [facility] [id number] [address] 2022-12-30 2022-12-30 Outpatient GC_GCFMAC_H PRIV PRIV [id number] [facility] 00:00:00 00:00:00 allbauer_ [id number] [facility] 2022-05-25 2022-05-25 Emergency X ABE CRUZ [facility] ERT [id number] Univers 03:40:00 05:20:00 ABE CRUZ itgiovanny of [facility] 2022-05-25 2022-05-25 Emergency [facility] [id number] Univers 03:40:00 05:20:00 Abe RILEY [id number] i ty of [place] [id number] [facility] [id number] [address] 2022-03-20 2022-03-20 Emergency [facility] [id number] Univers 10:35:00 11:27:00 CECILE molina of [facility] 2022-03-20 2022-03-20 Emergency [facility] [id number] Univers 10:35:00 11:27:00 Cecile LIN [id number] ity of [place] [id number] [facility] [id number] [address] 2021-12-24 2021-12-24 Emergency [facility] [id number] Univers 12:42:00 13:28:00 CECILE ity of [facility] 2021-12-24 2021-12-24 Emergency [facility] [id number] Univers 12:42:00 13:28:00 Cecile LIN [id number] ity of [place] [id number] [facility] [id number] [address] 2021-08-30 2021-08-30 Orders Doctor GUTIERREZ [id number] Univers 00:00:00 00:00:00 Only Unassigned, CISCO [id number] ity of [place] [facility] [id number] Kalpesh [id number] [place] [address] Branch 2021-08-21 2021-08-22 Emergency X [facility] ERT [id number] Univers 23:17:00 02:39:[address] [facility] 2021-08-21 2021-08-22 Emergency [facility] [id number] Univers 23:17:00 02:39:00 Daya LIN [id number] ity of [place] [id number] [id number] [address] 2021-07-10 2021-07-10 Emergency X [facility] ERT [id number] Univers 01:34:00 02:00:[address] [facility] 2021-07-10 2021-07-10 Emergency [facility] [id number] Univers 01:34:00 02:00:00 [facility] [id number] ity of [place] [id number] [facility] [id number] [address] 2021-07-10 2021-07-10 Orders Doctor MATT [id number] [id number] Univers 00:00:00 00:00:00 Only Unassigned, CISCO [id number] ity of [place] [facility] [id number] Kalpesh as [id number] [address] 2019-05-09 2019-05-09 Telephone [facility] 1.2.840.114 [id number] Univers 00:00:00 00:00:00 Jennifer Zuleta [employer] [id number] it y of [facility] [id number] Kalpesh as MATERNAL [id number] Med ical & CHILD [address] [place] [address] 2019-05-08 2019-05-08 Office [facility] [id number] Univers 14:14:39 15:05:56 Visit Jennifer Zuleta [employer]IV[employer] [id number] it y of [facility] [id number] Kalpesh as MATERNAL [id number] Med ical & CHILD [address] [place] [address] 2019-04-27 2019-04-28 Emergency Faby NEKURT [id number] Univers 23:36:03 02:00:00 Daya Lin [id number] [facility] [id number] [facility] [id number] [facility] 084 Branch Results Test Description Test Time Test Comments Results Result Comments Source POCT TEST 2022-05-25 08:58:00 Test Item Value Reference Range Interpretation Comme nts POCT PREG (test code = 1605) negative On board controls acceptable with C Line (test code = 3574) positiv e POCT PREG LOT # (test code = 3575) [id number] POCT PREG TEST DATE (test code = 3576) 08/11/2023 Lab Interpretation (test code = 35880-6) Normal [facility] BranchLaceration Edvyod2849-01-27 06:33:44Daya Hobbs MD? 04/28/2019?1:39 AMLaceration RepairDate/Time: 04/28/2019 1:38 AMPerformed by: Daya Hobbs MDAuthorized by: Daya Hobbs MD Consent: ?Consent obtained:?Verbal?Consent given by:?Patient?Risks discussed:?Infection, need for additional repair, nerve damage, pain, poor wound healing, retained foreign body, tendon damage, vascular damage and poor cosmetic result?Alternatives discussed:?No treatmentAnesthesia (see MAR for exact dosages): ?Anesthesia method:?Local infiltration?Local anesthetic:?Lidocaine 1% w/o epiLaceration details: ?Location:?Hand?Hand location:?R palm?Length (cm):?2?Depth (mm):?0.1Repair type: ?Repair type:?SimplePre-procedure details: ?Preparation:?Patient was prepped and draped in usual sterile fashion and imaging obtained to evaluate for foreign bodiesExploration: ?Hemostasis achieved with:?Direct pressure?Wound extent: no areolar tissue violation noted, no fascia violation noted, no foreign bodies/material noted, no muscle damage noted, no nerve damage noted, no tendon damage noted, no underlying fracture noted and no vascular damage noted?Contaminated: no?Treatment: ?Area cleansed with:?Hibiclens?Amount of cleaning:?Extensive?Irrigation solution:?Sterile saline?Irrigation method:?Pressure wash?Visualized foreign bodies/material removed: no?Skinrepair: ?Repair method:?Sutures?Suture size:?5-0?Suture material:?Prolene?Suture technique:?Simple interruptedApproximation: ?Approximation:?LoosePost-procedure details: ?Dressing:?Antibiotic ointment?P atient tolerance of procedure:?Tolerated well, no immediate complications [facility] VW [id number] 05:45:421. Right hand laceration is present without evidence for radiopaque foreignbody. RL: 6200 ORDERING PHYSICIAN: DAYA HOBBS THREE VIEWS RIGHT HAND. DATE: 04/28/2019 CLINICAL INDICATIONS: Right hand laceration, evaluate for foreign body. COMPARISON: None. FINDINGS: 3 views of the right hand demonstrate no evidence for acutefracture, subluxation or destructive osseous lesion. Laceration involvingthe lateral right hand at the ulnocarpal articulation is identified. Noradiopaque foreign body is identified. Tnmb, Radiant Results Inft User - 04/28/2019 12:49 AM CDTORDERING PHYSICIAN: DAYA HOBBSTHRCLEMENTEVIEWS RIGHT HAND.DATE: 04/28/2019CLINICAL INDICATIONS: Right hand laceration, evaluate for foreign body.COMPARISON: None.FINDINGS: 3 views of the right hand demonstrate no evidence for acutefracture, subluxation or destructive osseous lesion. Laceration involvingthe lateral right hand at the ulnocarpalarticulation is identified. Noradiopaque foreign body is identified.IMPRESSION1. Right hand laceration is present without evidence for radiopaque foreignbody.RL: [address] [facility]
--- NOTE | 2023-02-19 20:27 | EDPHYS ---
Physician Documentation [facility] Name: Martita Dodge Age: 33 yrs Sex: Female : 1990 Arrival Date: 02/19/2023 Time: 20:00 Bed IW2 Private MD: ED Physician Solitario Munroe HPI: 02/19 23:07 This 33 yrs old Female presents to ER via Ambulatory with complaints of Insect Bite, kb Neck Pain, <24hrs Old, Nausea, Head pain. 23:07 The patient presents with an abscess of the back of head. Description: erythematous, kb swollen, warm. Onset: The symptoms/episode began/occurred 1 week(s) ago. Possible cause(s): insect sting. Associated signs and symptoms: Pertinent positives: erythema, swelling. Modifying factors: the symptoms are alleviated by nothing, the symptoms are aggravated by pressure, squeezing the lesion and expressing the contents, touching. Severity of symptoms: At their worst the symptoms were moderate, in the emergency department the symptoms are unchanged. The patient has not experienced similar symptoms in the past. The patient has not recently seen a physician. 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 - Social history:: Smoking status: Patient reports the use of cigarette tobacco products, smokes one-half pack cigarettes per day, Patient/guardian denies using alcohol, street drugs. ROS: 23:06 Constitutional: Negative for fever, chills, and weight loss. kb 23:06 Skin: Positive for abscess, of the back of head. 23:06 All other systems are negative. Exam: 23:06 Constitutional: This is a well developed, well nourished patient who is awake, alert, kb and in no acute distress. Head/Face: Normocephalic, atraumatic. ENT: Moist Mucous membranes Cardiovascular: Regular rate and rhythm with a normal S1 and S2. No gallops, murmurs, or rubs. No pulse deficits. Respiratory: Respirations even and unlabored. No increased work of breathing. Talking in full sentences MS/ Extremity: Pulses equal, no cyanosis. Neurovascular intact. Full, normal range of motion. Neuro: Awake and alert, GCS 15, oriented to person, place, time, and situation. Moves all extremities. Normal gait. 23:06 Skin: abscess, that is small, of the back of head, with drainage, that is purulent. Vital Signs: 20:09 BP 136 / 81; Pulse 87; Resp 17 S; Temp 98.3(O); Pulse Ox 100% on R/A; Weight 73.03 kg lg3 (R); Height 5 ft. 4 in. (R); 20:09 Body Mass Index 27.64 (73.03 kg, 162.56 cm) lg3 MDM: 20:19 Patient medically screened. kb 23:06 Data reviewed: vital signs, nurses notes. kb 23:08 Differential diagnosis: abscess, allergic reaction, cellulitis, insect bite. kb Counseling: I had a detailed discussion with the patient and/or guardian regarding: the historical points, exam findings, and any diagnostic results supporting the discharge/admit diagnosis, the need for outpatient follow up, a family practitioner, to return to the emergency department if symptoms worsen or persist or if there are any questions or concerns that arise at home. Administered Medications: 20:30 Drug: Hydrocodone-Acetaminophen PO (7.5 mg-325 mg) 1 tabs Route: PO; lg3 20:30 Drug: Cephalexin PO 500 mg Route: PO; lg3 20:30 Drug: Trimethoprim-Sulfamethoxazole PO (160 mg-800 mg (DS) 1 tablet Route: PO; lg3 Disposition Summary: 02/19/23 20:27 Discharge Ordered Location: Home kb Condition: Stable kb Diagnosis - Cutaneous abscess of head [any part, except face] kb Followup: kb - With: Emergency Department - When: As needed - Reason: Worsening of condition Followup: kb - With: Private Physician - When: 2 - 3 days - Reason: Recheck today's complaints, Continuance of care, Re-evaluation by your physician Discharge Instructions: - Discharge Summary Sheet kb - Skin Abscess, [id number] kb Forms: - Medication Reconciliation Form kb - Thank You Letter kb - Antibiotic Education kb - Prescription Opioid Use kb Prescriptions: - Cephalexin 500 mg Oral Capsule - take 1 capsule by ORAL route every 8 hours for 10 days; 30 capsule; Refills: 0, kb Product Selection Permitted - Bactrim DS 800-160 mg Oral Tablet - take 1 tablet by ORAL route every 12 hours for 10 days; 20 tablet; Refills: 0, kb Product Selection Permitted Signatures: Debra Douglas, Neva Cotto, RN RN lg3
--- NOTE | 2023-02-19 20:27 | ER ---
Nurse's Notes [facility] Name: Martita Dodge Age: 33 yrs Sex: Female : 1990 Arrival Date: 02/19/2023 Time: 20:00 Bed IW2 Private MD: Diagnosis: Cutaneous abscess of head [any part, except face] Presentation: 02/19 20:09 Chief complaint: Patient states: i was stung on the back of my head about a week ago, i lg3 went to urgent care and they didn't do anything. i know the stinger is still in there and its infected and now i have a red streak down the back of my head. i went to [facility] last night too and they said there is nothing wrong. this morning a blister popped and now its hurting even worse. Coronavirus screen: Client denies travel out of the [place] in the last 14 days. At this time, the client does not indicate any symptoms associated with coronavirus-19. Ebola Screen: No symptoms or risks identified at this time. Initial Sepsis Screen: Does the patient meet any 2 criteria? No. Patient's initial sepsis screen is negative. Does the patient have a suspected source of infection? No. Patient's initial sepsis screen is negative. Risk Assessment: Do you want to hurt yourself or someone else? Patient reports no desire to harm self or others. Onset of symptoms is unknown. 20:09 Method Of Arrival: Ambulatory lg3 20:09 Acuity: DIANE 4 lg3 Triage Assessment: 20:13 Bite description: bite sustained to left parietal area by an unknown animal. General: lg3 Appears in no apparent distress. comfortable, Behavior is cooperative, anxious. Pain: Complains of pain in head. EENT: No deficits noted. No signs and/or symptoms were reported regarding the EENT system. Neuro: No deficits noted. Maher Agitation-Sedation Scale (RASS): +1 Restless Level of Consciousness is awake, alert, obeys commands, Oriented to person, place, time, situation. Cardiovascular: No deficits noted. Denies chest pain, shortness of breath, Capillary refill < 3 seconds Clubbing of nail beds is absent JVD is absent Patient's skin is warm and dry. Respiratory: No deficits noted. Airway is patent Respiratory effort is even, unlabored, Respiratory pattern is regular, symmetrical. GI: No deficits noted. No signs and/or symptoms were reported involving the gastrointestinal system. : No deficits noted. No signs and/or symptoms were reported regarding the genitourinary system. Derm: Wound noted left parietal area. Musculoskeletal: No deficits noted. No signs and/or symptoms reported regarding the musculoskeletal system. Circulation, motion, and sensation intact. Range of motion: intact in all extremities. 20:33 Bite description: animal information: vaccination(s) is not applicable. 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 - Social history:: Smoking status: Patient reports the use of cigarette tobacco products, smokes one-half pack cigarettes per day, Patient/guardian denies using alcohol, street drugs. Screenin:32 [facility] ED Fall Risk Assessment (Adult) History of falling in the last 3 months, lg3 including since admission No falls in past 3 months (0 pts). Abuse screen: Denies threats or abuse. Denies injuries from another. Nutritional screening: No deficits noted. Tuberculosis screening: No symptoms or risk factors identified. Assessment: 20:31 General: see triage assessment . Derm: Skin is intact, is healthy with good turgor, lg3 Skin is dry, Skin is normal, Wound noted left parietal area. Vital Signs: 20:09 BP 136 / 81; Pulse 87; Resp 17 S; Temp 98.3(O); Pulse Ox 100% on R/A; Weight 73.03 kg lg3 (R); Height 5 ft. 4 in. (R); 20:09 Body Mass Index 27.64 (73.03 kg, 162.56 cm) lg3 ED Course: 20:05 Patient arrived in ED. bp1 20:13 Triage completed. lg3 20:13 Arm band placed on right wrist. lg3 20:15 Debra Douglas FNP-C is [facility]. kb 20:15 Solitario Munroe MD is Attending Physician. kb 20:32 Patient has correct armband on for positive identification. lg3 20:32 No provider procedures requiring assistance completed. Patient did not have IV access lg3 during this emergency room visit. Administered Medications: 20:30 Drug: Hydrocodone-Acetaminophen PO (7.5 mg-325 mg) 1 tabs Route: PO; lg3 20:30 Drug: Cephalexin PO 500 mg Route: PO; lg3 20:30 Drug: Trimethoprim-Sulfamethoxazole PO (160 mg-800 mg (DS) 1 tablet Route: PO; lg3 Medication: 20:33 VIS not applicable for this client. lg3 Outcome: 20:27 Discharge ordered by . rob 20:32 Discharged to home ambulatory. lg3 20:32 Condition: stable 20:32 Discharge instructions given to patient, Instructed on discharge instructions, follow up and referral plans. medication usage, Demonstrated understanding of instructions, follow-up care, medications. 20:33 Patient left the ED. lg3 Signatures: Debra Douglas, FORK LIFT TECHNICIAN-C LARRY-Neva Leonard RN RN lg3 Rina Heller Corrections: (The following items were deleted from the chart) 20:19 20:09 Chief complaint: Patient states: i was stung on the back of my head 2 days ago, i lg3 went to urgent care and they didn't do anything. i know the stinger is still in there and its infected and now i have a red streak down the back of my head. i went to [facility] last night too and they said there is nothing wrong. this morning a blister popped and now its hurting even worse. lg3
[2023-02-19] MEDS ORDERED: CEPHALEXIN 250 MG CAP ONE (20:32)
[2023-02-19] MEDS ORDERED: SMZ./TMP. 800/160 MG TABLET ONE (20:33)
[2023-02-19] MEDS ORDERED: HYDROCODONE/APAP 7.5/325 MG TAB ONE (20:33)
[2023-02-19 21:39] VITALS: BP 136/81; TEMP 98.3; O2SAT 100
== END 2023-02-19 20:33 | disposition home or self-care (01) ==
LOC: ER 20:00
DX: L02.811 Cutaneous abscess of head [any part, except face] (principal); F17.210 Nicotine dependence, cigarettes, uncomplicated
CPT/HCPCS: 99283

== ENCOUNTER → 2023-11-08 | Emergency (ER) | payer OTHER, SELFPAY ==
[~2023-11-08] MED LIST: AZITHROMYCIN 250 MG TAB ONE; CEFTRIAXONE 500 MG/VIAL ONE; CYCLOBENZAPRINE 10 MG TAB ONE; FENTANYL CITR 100 MCG/2 ML ONE; IBUPROFEN 400 MG TAB ONE; KETOROLAC 30 MG/ML INJ ONE; LIDOCAINE 1% MPF 5 ML VIAL ONE; ONDANSETRON 4 MG/2 ML VIAL ONE; metroNIDAZOLE 500 MG TABLET ONE
--- NOTE | 2023-11-08 21:22 | RAD REPORT ---
EXAM DESCRIPTION: CT - Head Brain Wo Cont - 11/08/2023 9:13 pm CLINICAL HISTORY: TRAUMA COMPARISON: No comparisons TECHNIQUE: All CT scans are performed using dose optimization technique as appropriate and may inclu de automated exposure control or mA/KV adjustment according to patient size. FINDINGS: No intracranial hemorrhage, hydrocephalus or extra-axial fluid collection.No areas of brai n edema or evidence of midline shift. Probably chronic left nasal bone fracture. The paranasal sinuses and mastoids are clear. The calvarium is intact. IMPRESSION: No acute intracranial abnormality. Probably chronic left nasal bone fracture.
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
[2023-11-09 04:54] VITALS: BP 96/60; TEMP 98; O2SAT 97
--- NOTE | 2023-11-09 11:11 | RAD REPORT ---
EXAM DESCRIPTION: RAD - Shoulder Left 2 View - 11/09/2023 2:16 am CLINICAL HISTORY: Pain COMPARISON: None. TECHNIQUE: Left Shoulder 2 Views FINDINGS: No fracture or dislocation. No significant sclerotic/lytic bone lesion. Joint spaces unremarkable. Soft tissues unremarkable. IMPRESSION: Normal Left Shoulder Radiographs. Electronically signed by: Seymour Ross MD 11/09/2023 03:02 AM FACILITIES MAINTENANCE MANAGER Due to temporary technical issues with the PACS/Fluency reporting system, reports are being signed by the in house radiologist without review as a courtesy to ensure prompt reporting. The interpreting r adiologist is fully responsible for the content of the report.
== END ==
LOC: ER 20:22
PROC: 0HQ1XZZ Repair Face Skin, External Approach (ICD-10-PCS; principal; 2023-11-08)
DX: S01.511A Laceration without foreign body of lip, initial encounter (principal); S09.90XA Unspecified injury of head, initial encounter; M25.512 Pain in left shoulder; F17.210 Nicotine dependence, cigarettes, uncomplicated
CPT/HCPCS: 70450

== ENCOUNTER 2024-02-08 14:30 | Emergency (ER) | payer SELFPAY ==
[2024-02-08] MEDS ORDERED: KETOROLAC 30 MG/ML INJ ONE (15:54)
[2024-02-08] MEDS ORDERED: NA CHLORIDE 0.9% 1,000 ML ONE (15:54)
[2024-02-08] MEDS ORDERED: ONDANSETRON 4 MG/2 ML VIAL ONE (15:54)
[2024-02-08 16:34] LABS: Absolute Basophils 0.1 K/uL (0-0.5); Absolute Eosinophils 0.3 K/uL (0-0.5); Absolute Lymphocytes (CBC) 1.6 K/uL (0.7-4.9); Absolute Monocytes 0.8 K/uL (0.1-1.3); Absolute Neutrophil 7.1 K/uL (1.8-8.0); Basophils % 0.7 % (0-1.3); Eosinophils % 3.3 % (0-4.4); Hematocrit 41.1 % (36.0-45.0); Hemoglobin 13.7 g/dL (12.0-15.0); Lymphocytes % 16.5 % (15.3-44.8); MCH 30.6 pg (27.0-35.0); MCHC 33.3 g/dL (32.0-36.0); MPV 7.5 fL (7.6-11.3); Monocytes % 8.1 % (3.3-12.3); Neutrophils % 71.4 % (41.7-73.7); Platelets 342 thou/uL (152-406); RBC Red Blood Cell Count 4.47 M/uL (3.86-4.86)
[2024-02-08 16:43] LABS: Specific Gravity 1.011 (1.005-1.030)
[2024-02-08 16:48] LABS: Specific Gravity 1.011 (1.005-1.030); Sqamous Epithelial <5 /HPF (None Seen); Urine Bacteria <20 /HPF (<20); Urine Bilirubin NEGATIVE (Negative); Urine Blood 2+ (Negative); Urine Clarity Extremely Turbid (Clear); Urine Color Yellow (Yellow); Urine Culture Reflex Order REFLEXED; Urine Glucose NEGATIVE (Negative); Urine Ketones NEGATIVE (Negative); Urine Microscopic Reflex YN ORDER UMIC; Urine Mucus Slight /HPF (None Seen); Urine Nitrite NEGATIVE (Negative); Urine Protein 1+ (Negative); Urine RBC >50 /HPF (None Seen); Urine Urobilinogen Normal (Normal); Urine WBC >50 /HPF (<5); Urine WBC Clump Moderate /HPF (None Seen)
[2024-02-08 16:59] LABS: Albumin 3.4 g/dL (3.4-5.0); Albumin/Globulin Ratio 0.9 (1.1-1.8); Anion Gap 4.8 mEq/L (5.0-15.0); Bilirubin Total 0.2 mg/dL (0.2-1.0); Globulin 3.9 g/dL (2.3-3.5); Potassium 3.8 mEq/L (3.5-5.1); Protein, Total 7.3 g/dL (6.4-8.2)
[2024-02-08] MEDS ORDERED: CEFTRIAXONE 1000 MG/VIAL ONE (17:11)
--- NOTE | 2024-02-08 17:52 | RAD REPORT ---
EXAM DESCRIPTION: CT - Abdomen Pelvis W Contrast - 02/08/2024 5:31 pm CLINICAL HISTORY: Abdominal pain/flank pain COMPARISON: none. TECHNIQUE: Computed axial tomography of the abdomen pelvis was obtained. 100 cc Isovue-300 was admin istered intravenously. Oral contrast was not requested which limits evaluation of bowel and appendix All CT scans are performed using dose optimization technique as appropriate and may include automated exposure control or mA/KV adjustment according to patient size. FINDINGS: Enhancement of wall of right and left renal pelvis and ureters. No hydronephrosis. The liver, spleen, pancreas and adrenals unremarkable No evidence of diverticulitis. 2.2 centimeter right ovarian cyst without significant fluid. No follow-up imaging recommended IMPRESSION: Enhancement of the wall of right and left renal pelves and ureters may indicate an ascen ding urinary tract infection
--- NOTE | 2024-02-08 17:58 | ER ---
Nurse's Notes [facility] Name: Martita Dodge Age: 34 yrs Sex: Female : 1990 Arrival Date: 02/08/2024 Time: 14:30 Bed 17 Private MD: Diagnosis: UTI/ Urinary tract infection, site not specified Presentation: 02/07 15:16 Note CALLED FOR PATIENT. NO ANSWER. db 15:21 Chief complaint: Patient states: BILATERAL FLANK PAIN LEFT WORSE X 3 DAYS. STATES HAD db BLOOD IN URINE. Coronavirus screen: Client denies travel out of the [place] in the last 14 days. At this time, the client does not indicate any symptoms associated with coronavirus-19. Ebola Screen: Patient negative for fever greater than or equal to 101.5 degrees Fahrenheit, and additional compatible Ebola Virus Disease symptoms Patient denies exposure to infectious person. Patient denies travel to an Ebola-affected area in the 21 days before illness onset. No symptoms or risks identified at this time. Initial Sepsis Screen: Does the patient meet any 2 criteria? No. Patient's initial sepsis screen is negative. Does the patient have a suspected source of infection? No. Patient's initial sepsis screen is negative. Risk Assessment: Do you want to hurt yourself or someone else? Patient reports no desire to harm self or others. Onset of symptoms was February 05, 2024. 15:21 Method Of Arrival: Ambulatory db 15:21 Acuity: DIANE 3 db Triage Assessment: 15:23 General: Appears in no apparent distress. uncomfortable, Behavior is calm, cooperative. db Pain: Complains of pain in back. Neuro: Level of Consciousness is awake, alert, obeys commands, Oriented to person, place, time, situation. : Reports burning with urination. Historical: - Allergies: 15:22 NKDA; db - PMHx: 15:22 folliculitis; db - PSHx: 15:22 section; Right Ankle; db - Immunization history:: Adult Immunizations unknown. - Infectious Disease History:: Denies. - Social history:: Smoking status: Patient reports the use of cigarette tobacco products, smokes one-half pack cigarettes per day. Screenin:22 [facility] ED Fall Risk Assessment (Adult) History of falling in the last 3 months, rs5 including since admission No falls in past 3 months (0 pts) Confusion or Disorientation No (0 pts) Intoxicated or Sedated No (0 pts) Impaired Gait No (0 pts) Mobility Assist Device Used No (0 pt) Altered Elimination No (0 pt) Score/Fall Risk Level 0 - 2 = Low Risk Oriented to surroundings, Maintained a safe environment. 15:22 Abuse screen: Denies threats or abuse. Nutritional screening: No deficits noted. rs5 Tuberculosis screening: No symptoms or risk factors identified. Assessment: 15:21 General: Appears in no apparent distress. uncomfortable, Behavior is calm, cooperative. rs5 Pain: Complains of pain in bilat flank Pain currently is 7 out of 10 on a pain scale. Quality of pain is described as aching, Is continuous. Neuro: Level of Consciousness is awake, alert, obeys commands, Oriented to person, place, time, situation. Cardiovascular: Rhythm is regular. Respiratory: Airway is patent Respiratory effort is even, unlabored, Respiratory pattern is regular, symmetrical. GI: Abdomen is round non-distended, Abd is soft and non tender X 4 quads. : Reports blood in urine. EENT: No signs and/or symptoms were reported regarding the EENT system. Derm: Skin is intact, Skin is pink, warm \T\ dry. Musculoskeletal: Range of motion: intact in all extremities. 16:28 Reassessment: Patient and/or family updated on plan of care and expected duration. Pain rs5 level reassessed. Patient is alert, oriented x 3, equal unlabored respirations, skin warm/dry/pink. Patient states feeling better. 17:40 Reassessment: No changes from previously documented assessment. rs5 18:11 Reassessment: Patient and/or family updated on plan of care and expected duration. Pain rs5 level reassessed. Patient is alert, oriented x 3, equal unlabored respirations, skin warm/dry/pink. Vital Signs: 15:21 BP 110 / 68; Pulse 80; Resp 16; Temp 98.3(O); Pulse Ox 100% ; Weight 72.57 kg; Height 5 db ft. 4 in. ; 17:05 BP 113 / 74; Pulse 74; Resp 17; Pulse Ox 99% ; rs5 18:12 BP 115 / 72; Pulse 77; Resp 18; Pulse Ox 99% on R/A; rs5 15:21 Body Mass Index 27.46 (72.57 kg, 162.56 cm) db ED Course: 14:32 Patient arrived in ED. im 14:34 Mary Colby PA-C is PHCP. sb4 14:34 Ester Landers MD is Attending Physician. sb4 15:22 Triage completed. db 15:22 Patient has correct armband on for positive identification. Placed in gown. Bed in low rs5 position. Call light in reach. Side rails up X2. 15:22 No provider procedures requiring assistance completed. rs5 15:23 Arm band placed on. db 15:53 Miguel Matos, RN is Primary Nurse. rs5 16:25 Inserted saline lock: 22 gauge in left wrist, using aseptic technique. Blood collected. db 17:32 CT Abd/Pelvis - IV Contrast Only In Process Unspecified. EDMS Administered Medications: 16:10 Drug: NS 0.9% IV 1000 ml IV at 1 bolus Per protocol; 1000 mL bolus Route: IV; Rate: 1 rs5 bolus; Site: left wrist; 16:40 Follow up: Response: No adverse reaction rs5 16:10 Drug: TORadol - Ketorolac IVP 15 mg IVP once Route: IVP; Site: left wrist; rs5 16:40 Follow up: Response: No adverse reaction rs5 16:10 Drug: Ondansetron IVP 4 mg IVP once; over 2 minutes Route: IVP; Site: left wrist; rs5 16:40 Follow up: Response: No adverse reaction rs5 17:10 Drug: Rocephin IV 1 grams IV at calculated rate once; Given slow IV push per pharmacy rs5 instructions Route: IV; Rate: calculated rate; Site: left wrist; 17:30 Follow up: Response: No adverse reaction rs5 Medication: 18:13 VIS not applicable for this client. rs5 Outcome: 17:57 Discharge ordered by . sb4 18:18 Patient left the ED. rs5 Signatures: Dispatcher [employer] EDMS Dorie Lim RN RN db Mary Colby PA-C PA-C sb4 Miguel Matos, RN RN rs5 Reta Drummond im Corrections: (The following items were deleted from the chart) 15:23 15:21 BP 110 / 68; Pulse 80bpm; Resp 16bpm; Pulse Ox 100%; Temp 98.3F Oral; db db 18:12 17:05 BP 115 / 72; Pulse 77bpm; Resp 18bpm; Pulse Ox 99% RA; rs5 rs5
--- NOTE | 2024-02-08 17:58 | EDPHYS ---
Physician Documentation [facility] Name: Martita Dodge Age: 34 yrs Sex: Female : 1990 Arrival Date: 02/08/2024 Time: 14:30 Bed 17 Private MD: ED Physician Ester Landers HPI: 02/07 15:24 This 34 yrs old Female presents to ER via Ambulatory with complaints of Urinary Problem.sb4 15:24 UTI symptoms x 3 days. lower back started hurting today. sb4 15:24 The patient presents with flank pain, bilaterally, urinary symptoms, dysuria. Onset: sb4 The symptoms/episode began/occurred 3 day(s) ago. Modifying factors: The symptoms are alleviated by nothing, the symptoms are aggravated by pressure. Associated signs and symptoms: The patient has no apparent associated signs or symptoms. The patient has experienced a previous episode. The patient has not recently seen a physician. Historical: - Allergies: 15:22 NKDA; db - PMHx: 15:22 folliculitis; db - PSHx: 15:22 section; Right Ankle; db - Immunization history:: Adult Immunizations unknown. - Infectious Disease History:: Denies. - Social history:: Smoking status: Patient reports the use of cigarette tobacco products, smokes one-half pack cigarettes per day. ROS: 15:24 Positive for urinary symptoms, urinary frequency, hematuria, burning with urination, sb4 15:24 Constitutional: Negative for fever, chills, and weight loss, 15:24 Abdomen/GI: Positive for abdominal pain, 15:24 Back: Positive for flank pain, 15:24 All other systems are negative, Exam: 15:24 Head/Face: Normocephalic, atraumatic. Eyes: Extra-ocular motions intact. Periorbital sb4 areas with no swelling, redness, or edema. ENT: Mucous membranes moist. Cardiovascular: Regular rate and rhythm with a normal S1 and S2. Respiratory: Lungs have equal breath sounds bilaterally, clear to auscultation and percussion. No rales, rhonchi or wheezes noted. No increased work of breathing, no retractions or nasal flaring. 15:24 Constitutional: The patient appears alert, awake, uncomfortable, 15:24 Abdomen/GI: Inspection: abdomen appears normal, Bowel sounds: normal, Palpation: soft, mild abdominal tenderness, in the suprapubic area, 15:24 Back: CVA tenderness, that is mild, is noted bilaterally, Vital Signs: 15:21 BP 110 / 68; Pulse 80; Resp 16; Temp 98.3(O); Pulse Ox 100% ; Weight 72.57 kg; Height 5 db ft. 4 in. ; 17:05 BP 113 / 74; Pulse 74; Resp 17; Pulse Ox 99% ; rs5 18:12 BP 115 / 72; Pulse 77; Resp 18; Pulse Ox 99% on R/A; rs5 15:21 Body Mass Index 27.46 (72.57 kg, 162.56 cm) db MDM: 15:18 Patient medically screened. sb4 17:57 Data reviewed: vital signs, nurses notes, lab test result(s), radiologic studies, and sb4 as a result, I will discharge patient. Counseling: I had a detailed discussion with the patient and/or guardian regarding the historical points, exam findings, and any diagnostic results supporting the discharge/admit diagnosis, lab results, radiology results, to return to the emergency department if symptoms worsen or persist or if there are any questions or concerns that arise at home. 02/07 15:23 Order name: CBC with Diff; Complete Time: 16:38 sb4 02/07 15:23 Order name: CMP; Complete Time: 17:00 sb4 02/07 15:23 Order name: Lipase; Complete Time: 17:00 sb4 02/07 15:23 Order name: Test, Urine; Complete Time: 16:49 sb4 02/07 15:23 Order name: Urinalysis w/ reflexes; Complete Time: 16:52 sb4 02/07 16:54 Order name: Urine Culture EDNC 02/07 15:23 Order name: CT Abd/Pelvis - IV Contrast Only; Complete Time: 17:53 sb4 02/07 15:23 Order name: IV Saline Lock; Complete Time: 16:43 sb4 02/07 15:23 Order name: Labs collected and sent; Complete Time: 16:43 sb4 Administered Medications: 16:10 Drug: NS 0.9% IV 1000 ml IV at 1 bolus Per protocol; 1000 mL bolus Route: IV; Rate: 1 rs5 bolus; Site: left wrist; 16:40 Follow up: Response: No adverse reaction rs5 16:10 Drug: TORadol - Ketorolac IVP 15 mg IVP once Route: IVP; Site: left wrist; rs5 16:40 Follow up: Response: No adverse reaction rs5 16:10 Drug: Ondansetron IVP 4 mg IVP once; over 2 minutes Route: IVP; Site: left wrist; rs5 16:40 Follow up: Response: No adverse reaction rs5 17:10 Drug: Rocephin IV 1 grams IV at calculated rate once; Given slow IV push per pharmacy rs5 instructions Route: IV; Rate: calculated rate; Site: left wrist; 17:30 Follow up: Response: No adverse reaction rs5 Disposition Summary: 02/08/24 17:57 Discharge Ordered Notes: Location: Home sb4 Problem: new sb4 Symptoms: have improved sb4 Condition: Stable sb4 Diagnosis - UTI/ Urinary tract infection, site not specified sb4 Followup: sb4 - With: Emergency Department - When: As needed - Reason: Trouble breathing, Worsening of condition Discharge Instructions: - Discharge Summary Sheet sb4 - Urinary Tract Infection, Adult, [id number] sb4 Forms: - Antibiotic Education sb4 - Patient Portal Instructions sb4 - Leadership Thank You Letter sb4 Prescriptions: - Bactrim DS 800-160 mg Oral Tablet - take 1 tablet ORAL route every 12 hours for 10 days; 20 tablet; Refills: 0, sb4 Product Selection Permitted Signatures: Dispatcher [employer] Dorie Gomez, RN RN Mary Omer PA-C PAJanelle sb4 Miguel Matos RN RN rs5 Corrections: (The following items were deleted from the chart) 15:24 15:24 CBC+H.LAB.BRZ ordered. EDMS EDMS 15:24 15:24 COMPREHENSIVE METABOLIC PANEL+C.LAB.BRZ ordered. EDMS EDMS 15:24 15:24 LIPASE+C.LAB.BRZ ordered. EDMS EDMS 15:24 15:24 Test, Urine+UC.LAB.BRZ ordered. EDMS EDMS 15:24 15:24 Urinalysis+U.LAB.BRZ ordered. EDMS EDMS
[2024-02-08 18:41] VITALS: TEMP 98.3; O2SAT 99
[2024-02-08 18:58] VITALS: BP 115/72
== END 2024-02-08 18:18 | disposition home or self-care (01) ==
LOC: ER 14:30
DX: N39.0 Urinary tract infection, site not specified (principal)
CPT/HCPCS: 36415; 74177; 80053; 81001; 81025; 83690; 85025; 87077; 87086; 87088; 87186; 96374; 96375; 99284; J0696; J2405; J7030; Q9967

== ENCOUNTER 2024-03-15 01:08 | Emergency (ER) | payer SELFPAY ==
--- NOTE | 2024-03-15 01:27 | EDPHYS ---
Physician Documentation [facility] Name: Martita Dodge Age: 34 yrs Sex: Female : 1990 Arrival Date: 03/15/2024 Time: 01:08 Bed 8 Private MD: ED Physician Juancarlos Farias HPI: 03/15 01:54 This 34 yrs old Female presents to ER via Ambulatory with complaints of Poison mayuri. rt 01:54 Patient presents to the ED with report of poison mayuri. Is been present for about 2 days. rt She reports that is to her face, lower abdomen. States that her eye was swollen shut but this did improve with Benadryl. Reports a itching to the lips but denies any difficulty breathing, tongue swelling. Denies other acute complaints, symptoms are mild in severity, no other aggravating or alleviating factors.. 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 - Infectious Disease History:: Denies. - Social history:: Smoking status: Patient reports the use of cigarette tobacco products, smokes one pack cigarettes per day. - Family history:: not pertinent. ROS: 01:54 Constitutional: Negative for fever, chills, and weight loss, Cardiovascular: Negative rt for chest pain, palpitations, and edema, Respiratory: Negative for shortness of breath, cough, wheezing, and pleuritic chest pain, Abdomen/GI: Negative for abdominal pain, nausea, vomiting, diarrhea, and constipation, Neuro: Negative for headache, weakness, numbness, tingling, and seizure, :54 Skin: Positive for Itching, erythema, Exam: :54 Constitutional: This is a well developed, well nourished patient who is awake, alert, rt and in no acute distress. Chest/axilla: Normal chest wall appearance and motion. Nontender with no deformity. No lesions are appreciated. Cardiovascular: Regular rate and rhythm with a normal S1 and S2. No gallops, murmurs, or rubs. Normal PMI, no JVD. No pulse deficits. Respiratory: Lungs have equal breath sounds bilaterally, clear to auscultation and percussion. No rales, rhonchi or wheezes noted. No increased work of breathing, no retractions or nasal flaring. Abdomen/GI: Soft, non-tender, with normal bowel sounds. No distension or tympany. No guarding or rebound. No evidence of tenderness throughout. MS/ Extremity: Pulses equal, no cyanosis. Neurovascular intact. Full, normal range of motion. 01:54 Head/face: Dermatitis noted to the right side of the face. 01:54 Eyes: No conjunctival injection, extraocular muscles intact. 01:54 ENT: No oral or pharyngeal swelling, erythema noted. Vital Signs: 01:21 BP 119 / ???; Pulse 83; Resp 16; Temp 98.4(O); Pulse Ox 100% on R/A; Weight 72.57 kg jb4 (R); Height 5 ft. 4 in. ; Pain 3/10; 01:27 BP 119 / 83; Pulse 88; Resp 17; Temp 98.4; Pulse Ox 100% on R/A; Weight 72.57 kg; bm8 Height 5 ft. 4 in. ; Pain 2/10; 01:27 Body Mass Index 27.46 (72.57 kg, 162.56 cm) bm8 01:21 Pain Scale: Adult jb4 01:27 Pain Scale: Adult bm8 Ripley Coma Score: 01:31 Eye Response: spontaneous(4). Motor Response: obeys commands(6). Verbal Response: bm8 oriented(5). Total: 15. MDM: 01:20 Patient medically screened. rt 01:54 Differential Diagnosis Contact dermatitis. Data reviewed: vital signs, nurses notes. I rt considered the following discharge prescriptions or medication management in the emergency department Medications were administered in the Emergency Department. See MAR No signs or symptoms of anaphylaxis, epinephrine not needed. Counseling: I had a detailed discussion with the patient and/or guardian regarding the historical points, exam findings, and any diagnostic results supporting the discharge/admit diagnosis, the need for outpatient follow up, to return to the emergency department if symptoms worsen or persist or if there are any questions or concerns that arise at home. Response to treatment: the patient's symptoms have mildly improved after treatment. Administered Medications: 01:35 Drug: Famotidine PO 20 mg PO once Route: PO; bm8 01:43 Follow up: Response: No adverse reaction bm8 01:35 Drug: Dexamethasone IM 10 mg IM once Route: IM; Site: left ventrogluteal; bm8 01:43 Follow up: Response: No adverse reaction bm8 01:43 Drug: diphenhydrAMINE PO 50 mg PO once Route: PO; bm8 01:44 Follow up: Response: No adverse reaction bm8 Disposition Summary: 03/15/24 01:26 Discharge Ordered Notes: Location: Home rt Problem: new rt Symptoms: have improved rt Condition: Stable rt Diagnosis - Unspecified contact dermatitis due to plants, except food rt Followup: rt - With: Private Physician - When: 2 - 3 days - Reason: Discharge Instructions: - Discharge Summary Sheet rt - Contact Dermatitis rt - Poison Mayuri Dermatitis rt Forms: - Medication Reconciliation Form rt - Antibiotic Education rt - Prescription Opioid Use rt - Patient Portal Instructions rt - Leadership Thank You Letter rt Prescriptions: - Prednisone 20 mg Oral Tablet - take 2 tablets ORAL route once daily for 5 days; 10 tablet; Refills: 0, Product rt Selection Permitted Signatures: Joe Chang, RN RN jb4 Juancarlos Farias MD MD rt Javy Cabrera RN RN bm8
[2024-03-15] MEDS ORDERED: dexAMETHasone 10 MG/ML VIAL ONE (01:36)
[2024-03-15] MEDS ORDERED: DIPHENHYDRAMINE 25 MG TAB/CAP ONE (01:36)
[2024-03-15] MEDS ORDERED: FAMOTIDINE 20 MG TAB ONE (01:37)
--- NOTE | 2024-03-15 01:44 | ER ---
Nurse's Notes [facility] Name: Martita Dodge Age: 34 yrs Sex: Female : 1990 Arrival Date: 03/15/2024 Time: 01:08 Bed 8 Private MD: Diagnosis: Unspecified contact dermatitis due to plants, except food Presentation: 03/15 01:21 Chief complaint: Patient states: I am very allergic to poison RADHA. It started on my jb4 arms, legs, and stomach. Now it is affecting my face. My right eye was almost swollen shut and my mouth and throat are burning. Coronavirus screen: At this time, the client does not indicate any symptoms associated with coronavirus-19. Ebola Screen: No symptoms or risks identified at this time. Initial Sepsis Screen: Does the patient meet any 2 criteria? No. Patient's initial sepsis screen is negative. Does the patient have a suspected source of infection? No. Patient's initial sepsis screen is negative. Risk Assessment: Do you want to hurt yourself or someone else? Patient reports no desire to harm self or others. Onset of symptoms was March 13, 2024. Transition of care: patient was not received from another setting of care. 01:21 Method Of Arrival: Ambulatory jb4 01:21 Acuity: DIANE 4 jb4 01:27 Chief complaint: Patient states: I think i was exposed to poison radha sometime bm8 yesterday. Coronavirus screen: Vaccine status: Patient reports being unvaccinated. Ebola Screen: Patient negative for fever greater than or equal to 101.5 degrees Fahrenheit, and additional compatible Ebola Virus Disease symptoms Patient denies exposure to infectious person. Patient denies travel to an Ebola-affected area in the 21 days before illness onset. No symptoms or risks identified at this time. Initial Sepsis Screen: Does the patient meet any 2 criteria? No. Patient's initial sepsis screen is negative. Does the patient have a suspected source of infection? No. Patient's initial sepsis screen is negative. Risk Assessment: Do you want to hurt yourself or someone else? Patient reports no desire to harm self or others. Onset of symptoms is unknown. 01:27 Method Of Arrival: Ambulatory bm8 01:27 Acuity: DIANE 4 bm8 Triage Assessment: :27 General: Appears in no apparent distress. uncomfortable, Behavior is calm, cooperative, bm8 appropriate for age. Pain: Complains of pain in face, trunk, arms and back Pain does not radiate. Pain currently is 2 out of 10 on a pain scale. EENT: Reports swelling and itching to lips and nose. Neuro: No deficits noted. Level of Consciousness is awake, alert, obeys commands, Oriented to person, place, time, situation, Appropriate for age. Cardiovascular: Denies chest pain, Heart tones S1 S2 present Capillary refill < 3 seconds Patient's skin is warm and dry. Respiratory: Airway is patent Trachea midline Respiratory effort is even, unlabored, Respiratory pattern is regular, symmetrical, Breath sounds are clear bilaterally. GI: No signs and/or symptoms were reported involving the gastrointestinal system. : No signs and/or symptoms were reported regarding the genitourinary system. Derm: Reports itching, pain tingling, to face, arms and back. Musculoskeletal: No deficits noted. No signs and/or symptoms reported regarding the musculoskeletal system. 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 - Infectious Disease History:: Denies. - Social history:: Smoking status: Patient reports the use of cigarette tobacco products, smokes one pack cigarettes per day. - Family history:: not pertinent. Screenin:31 [facility] ED Fall Risk Assessment (Adult) History of falling in the last 3 months, bm8 including since admission No falls in past 3 months (0 pts) Confusion or Disorientation No (0 pts) Intoxicated or Sedated No (0 pts) Impaired Gait No (0 pts) Mobility Assist Device Used No (0 pt) Altered Elimination No (0 pt) Score/Fall Risk Level 0 - 2 = Low Risk Oriented to surroundings, Maintained a safe environment, Educated pt \T\ family on fall prevention, incl call for assistance when getting out of bed, Assessed \T\ reinforced patient's understanding of fall precautions, Hourly rounding (assess needs \T\ fall precautionary measures) done. Abuse screen: Denies threats or abuse. Nutritional screening: No deficits noted. Tuberculosis screening: No symptoms or risk factors identified. Assessment: 01:31 Reassessment: see triage assessment. bm8 Vital Signs: 01:21 BP 119 / ???; Pulse 83; Resp 16; Temp 98.4(O); Pulse Ox 100% on R/A; Weight 72.57 kg jb4 (R); Height 5 ft. 4 in. ; Pain 3/10; 01:27 BP 119 / 83; Pulse 88; Resp 17; Temp 98.4; Pulse Ox 100% on R/A; Weight 72.57 kg; bm8 Height 5 ft. 4 in. ; Pain 2/10; 01:27 Body Mass Index 27.46 (72.57 kg, 162.56 cm) bm8 01:21 Pain Scale: Adult jb4 01:27 Pain Scale: Adult bm8 Karla Coma Score: 01:31 Eye Response: spontaneous(4). Motor Response: obeys commands(6). Verbal Response: bm8 oriented(5). Total: 15. ED Course: 01:10 Patient arrived in ED. mr 01:10 Juancarlos Farias MD is Attending Physician. rt 01:27 Javy Cabrera, RN is Primary Nurse. bm8 01:28 Triage completed. jb4 01:28 Arm band placed on right wrist. jb4 01:31 Patient has correct armband on for positive identification. Bed in low position. Side bm8 rails up X 1. Provided Education on: post er care. Client placed on continuous cardiac and pulse oximetry monitoring. NIBP monitoring applied. Pulse ox on. NIBP on. Door closed. Noise minimized. Warm blanket given. Verbal reassurance given. :31 No provider procedures requiring assistance completed. Patient did not have IV access bm8 during this emergency room visit. Administered Medications: 01:35 Drug: Famotidine PO 20 mg PO once Route: PO; bm8 01:43 Follow up: Response: No adverse reaction bm8 01:35 Drug: Dexamethasone IM 10 mg IM once Route: IM; Site: left ventrogluteal; bm8 01:43 Follow up: Response: No adverse reaction bm8 01:43 Drug: diphenhydrAMINE PO 50 mg PO once Route: PO; bm8 01:44 Follow up: Response: No adverse reaction bm8 Medication: :31 VIS not applicable for this client. bm8 Outcome: 01:26 Discharge ordered by . rt 01:31 Discharged to home ambulatory, bm8 01:31 Condition: stable 01:31 Condition: stable 01:31 Discharge instructions given to patient, Instructed on discharge instructions, follow up and referral plans. Demonstrated understanding of instructions, follow-up care, medications, Prescriptions given X 1, 01:44 Patient left the ED. bm8 Signatures: Merissa Hill, Reg Reg mr Joe Chang, RN RN jb4 Juancarlos Farias MD MD rt Javy Cabrera, RN RN bm8
[2024-03-15 02:15] VITALS: BP 119/83; TEMP 98.4; O2SAT 100
== END 2024-03-15 01:44 | disposition home or self-care (01) ==
LOC: ER 01:08
DX: L25.5 Unspecified contact dermatitis due to plants, except food (principal)
CPT/HCPCS: 96372; 99284; J1100

== ENCOUNTER 2024-04-25 20:43 | Emergency (ER) | payer SELFPAY ==
[2024-04-25 21:22] LABS: SARS-CoV-2 Antigen CONTROL BLUE LINE VIS/BG OK; SARS-CoV-2 Antigen Rapid Res Negative (Negative)
--- NOTE | 2024-04-25 22:39 | EDPHYS ---
Physician Documentation [facility] Name: Martita Dodge Age: 34 yrs Sex: Female : 1990 Arrival Date: 04/25/2024 Time: 20:43 Bed IW1 Private MD: ED Physician Walt Purdy HPI: 04/25 20:54 This 34 yrs old Female presents to ER via Ambulatory with complaints of sp4 Swollen Glands. 23:27 Pt is a 34 year old female who presents for sore throat that started this morning. kb Denies fever. STates her nephew was recently diagnosed with strep. . 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 - Infectious Disease History:: Denies. - Social history:: Smoking status: Patient reports the use of cigarette tobacco products, smokes one-half pack cigarettes per day. ROS: 23:27 Constitutional: As per HPI kb Exam: 23:27 Constitutional: This is a well developed, well nourished patient who is awake, alert, kb and in no acute distress. Head/Face: Normocephalic, atraumatic. Cardiovascular: Regular rate Respiratory: Respirations even and unlabored. No increased work of breathing. Talking in full sentences Skin: Warm, dry with normal turgor. Normal color. MS/ Extremity: Pulses equal, no cyanosis. Neurovascular intact. Full, normal range of motion. Neuro: Awake and alert, GCS 15, oriented to person, place, time, and situation. Moves all extremities. Normal gait. 23:27 ENT: Posterior pharynx: Airway: normal, no evidence of obstruction, swelling, is not appreciated, erythema, that is moderate, Vital Signs: 20:49 BP 134 / 74; Pulse 84; Resp 18; Temp 98.2; Pulse Ox 100% ; Weight 68.04 kg; Height 5 mb9 ft. 4 in. ; 20:49 Body Mass Index 25.75 (68.04 kg, 162.56 cm) mb9 MDM: 20:54 Patient medically screened. kb 23:29 Differential diagnosis: pharyngitis, strep, tonsillitis, HAND EMBROIDERER. Data reviewed: vital kb signs, nurses notes. ED course: Pt elected to leave from lobby prior to results. 04/25 20:53 Order name: SARS RAPID; Complete Time: 21:24 9 04/25 20:53 Order name: Strep; Complete Time: 22:38 9 04/25 21:57 Order name: Throat Culture EDMS Administered Medications: No medications were administered Disposition: 04/26 20:32 Co-signature as Attending Physician, Walt Purdy MD I agree with the assessment sp4 and plan of care. I reviewed the patient's care provided by the Advanced Practice Provider and agree with the diagnosis and treatment plan. Disposition Summary: 04/25/24 22:39 Discharge Ordered Notes: Location: Home kb Condition: Stable kb Diagnosis - Acute pharyngitis, unspecified kb Followup: kb - With: Emergency Department - When: As needed - Reason: Worsening of condition Followup: kb - With: Private Physician - When: 2 - 3 days - Reason: Recheck today's complaints, Continuance of care, Re-evaluation by your physician Discharge Instructions: - Discharge Summary Sheet kb - Pharyngitis, [id number] kb Forms: - Medication Reconciliation Form kb - Antibiotic Education kb - Prescription Opioid Use kb - Patient Portal Instructions kb - Leadership Thank You Letter kb Signatures: Dispatcher [employer] EDDebra Goff FNP-C FNP-Ckb Wilkerson, Mary Beth RN RN Walt Rai MD MD sp4
--- NOTE | 2024-04-25 22:39 | ER ---
Nurse's Notes [facility] Name: Martita Dodge Age: 34 yrs Sex: Female : 1990 Arrival Date: 04/25/2024 Time: 20:43 Bed IW1 Private MD: Diagnosis: Acute pharyngitis, unspecified Presentation: 04/25 20:49 Chief complaint: Patient states: "My nephew has strep and I think I got it from him. My mb9 throat is sore and hurts since this morning.". Coronavirus screen: Vaccine status: Patient reports being unvaccinated. Ebola Screen: No symptoms or risks identified at this time. Initial Sepsis Screen: Does the patient meet any 2 criteria? No. Patient's initial sepsis screen is negative. Does the patient have a suspected source of infection? No. Patient's initial sepsis screen is negative. Risk Assessment: Do you want to hurt yourself or someone else? Patient reports no desire to harm self or others. Onset of symptoms was April 25, 2024. 20:49 Acuity: DIANE 4 mb9 20:49 Method Of Arrival: Ambulatory mb9 Triage Assessment: 20:50 General: Appears in no apparent distress. Behavior is calm, cooperative. Pain: mb9 Complains of pain in throat. EENT: Throat is reddened. Neuro: Maher Agitation-Sedation Scale (RASS): 0 - Alert and Calm Level of Consciousness is awake, alert, obeys commands, Oriented to person, place, time, situation, Appropriate for age. Cardiovascular: Patient's skin is warm and dry. Respiratory: Airway is patent Respiratory effort is even, unlabored, Respiratory pattern is regular, symmetrical. GI: No signs and/or symptoms were reported involving the gastrointestinal system. : No signs and/or symptoms were reported regarding the genitourinary system. Derm: Skin is pink, warm \\T\\ dry. Musculoskeletal: Range of motion: intact in all extremities. CRA: 20:51 LMP 04/25/2024, unknown mb9 Historical: - Allergies: 20:50 NKDA; mb9 - Home Meds: 20:50 None [Active]; mb9 - PMHx: 20:50 folliculitis; mb9 - PSHx: 20:50 section; Right Ankle; mb9 - Immunization history:: Adult Immunizations up to date. - Infectious Disease History:: Denies. - Social history:: Smoking status: Patient reports the use of cigarette tobacco products, smokes one-half pack cigarettes per day. Screenin:51 [facility] ED Fall Risk Assessment (Adult) History of falling in the last 3 months, mb9 including since admission No falls in past 3 months (0 pts) Confusion or Disorientation No (0 pts) Intoxicated or Sedated No (0 pts) Impaired Gait No (0 pts) Mobility Assist Device Used No (0 pt) Altered Elimination No (0 pt) Score/Fall Risk Level 0 - 2 = Low Risk Oriented to surroundings, Maintained a safe environment, Educated pt \\T\\ family on fall prevention, incl call for assistance when getting out of bed. Abuse screen: Denies threats or abuse. Nutritional screening: No deficits noted. Tuberculosis screening: No symptoms or risk factors identified. Assessment: 20:55 Reassessment: see triage assessment. mb9 Vital Signs: 20:49 BP 134 / 74; Pulse 84; Resp 18; Temp 98.2; Pulse Ox 100% ; Weight 68.04 kg; Height 5 mb9 ft. 4 in. ; 20:49 Body Mass Index 25.75 (68.04 kg, 162.56 cm) mb9 ED Course: 20:45 Patient arrived in ED. [id number] 20:50 Triage completed. mb9 20:50 Arm band placed on. mb9 20:51 Adult w/ patient. Client placed on continuous cardiac and pulse oximetry monitoring. mb9 NIBP monitoring applied. 20:52 No provider procedures requiring assistance completed. mb9 20:53 Walt Purdy MD is Attending Physician. sp4 20:54 [facility]C [facility] kb 20:54 Strep Sent. mb9 20:54 SARS RAPID Sent. mb9 20:55 COVID swab sent to lab. Strep swab sent to lab. mb9 Administered Medications: No medications were administered Medication: 20:51 VIS not applicable for this client. mb9 Outcome: 22:39 Discharge ordered by . kb 22:52 Eloped from waiting room, after seeing physician Time discovered patient gone: April 2023 at 22:52 22:53 Patient left the ED. Signatures: Debra Douglas FNP-C FNP-Latisha Segura, RN RN kl Chanell Shaverj6 Merissa Santos RN RN mb9 Walt Purdy MD MD sp4
[2024-04-25 23:02] VITALS: BP 134/74; TEMP 98.2; O2SAT 100
== END 2024-04-25 22:53 | disposition home or self-care (01) ==
LOC: ER 20:43
DX: J02.9 Acute pharyngitis, unspecified (principal); Z11.52 Encounter for screening for COVID-19
CPT/HCPCS: 36415; 87070; 87081; 87811